=== PATIENT | female | born 1955 | race Caucasian/White ===

== ENCOUNTER 2022-12-10 08:38 | Outpatient (OUT) | payer MEDICARE, SELFPAY ==
[2022-12-10 09:42] LABS: Alanine Aminotransferase 38 U/L (14-59); Albumin Globulin Ratio 1.3; Alkaline Phosphatase 87 U/L (46-116); Anion Gap 10.3; Aspartate Amino Transferase 35 U/L (15-37); BUN Creatinine Ratio 15.1; Bilirubin Total 0.8 mg/dL (0.2-1.0); Calcium 9.3 mg/dL (8.5-10.1); Carbon Dioxide 29.6 mmol/L (21.0-32.0); Chloride 107 mmol/L (98-107); Chol HDL Ratio 2.6; Cholesterol 177 mg/dL (<=200); Estimated GFR (African America >60 (>=60); Estimated GFR (Non-African Ame 60 (>=60); Globulin 3.1 g/dL; Glucose 106 mg/dL (74-106); HDL Cholesterol 67 mg/dL (40-60); Potassium 3.9 mmol/L (3.5-5.1); Sodium 143 mmol/L (136-145); Total Protein 7.1 g/dL (6.4-8.2); Triglycerides 60 mg/dL (<=150)
== END 2022-12-10 08:39 | disposition home or self-care (01) ==
LOC: LAB 08:38
PROVIDERS: PCP Family Medicine; Visit Provider Family Medicine
DX: E78.2 Mixed hyperlipidemia (principal); Z13.1 Encounter for screening for diabetes mellitus
CPT/HCPCS: 36415; 80053; 80061

== ENCOUNTER 2023-11-16 09:20 | Outpatient (OUT) | payer MEDICARE, SELFPAY ==
[2023-11-16 11:32] LABS: Alanine Aminotransferase 30 U/L (14-59); Albumin Globulin Ratio 1.1; Albumin Level 3.6 g/dL (3.4-5.0); Alkaline Phosphatase 72 U/L (46-116); Anion Gap 8.2; Aspartate Amino Transferase 27 U/L (15-37); BUN Creatinine Ratio 25.3; Bilirubin Total 0.8 mg/dL (0.2-1.0); Calcium 8.9 mg/dL (8.5-10.1); Carbon Dioxide 29.8 mmol/L (21.0-32.0); Chloride 107 mmol/L (98-107); Chol HDL Ratio 2.7; Cholesterol 195 mg/dL (<=200); Estimated GFR (African America >60 (>=60); Estimated GFR (Non-African Ame >60 (>=60); Globulin 3.3 g/dL; Glucose 101 mg/dL (74-106); HDL Cholesterol 72 mg/dL (40-60); Sodium 141 mmol/L (136-145); Total Protein 6.9 g/dL (6.4-8.2); Triglycerides 88 mg/dL (<=150); VLDL CHOLESTEROL 17.6 mg/dL
[2023-11-17 16:45] LABS: Free T4 0.95 ng/dL (0.76-1.46)
[2023-11-17 16:52] LABS: Free T3 2.71 pg/mL (2.18-3.98); Thyroid Stimulating Hormone 2.272 uIU/mL (0.358-3.740)
== END 2023-11-16 09:21 | disposition home or self-care (01) ==
LOC: LAB 09:23
PROVIDERS: PCP Family Medicine; Visit Provider Family Medicine
DX: E78.2 Mixed hyperlipidemia (principal); Z13.1 Encounter for screening for diabetes mellitus; R53.82 Chronic fatigue, unspecified
CPT/HCPCS: 36415; 80053; 80061; 84439; 84443; 84481

== ENCOUNTER 2024-05-17 11:28 | Outpatient (OUT) | payer MEDICARE, SELFPAY ==
--- OUTSIDE RECORDS SUMMARY | 2024-05-17 11:33 | XMS_ITS | CCD ---
Author Organization [facility] Care Team Providers Care Customer Service Representative Teacher Name Role Phone DEL CAROLINA Primary Care Physician REQUEST, DR VIVAS LISTED Consulting Unavaila ble REQUEST, DR VIVAS LISTED Admitting Unavaila ble HEMEKAYLAN, DR KAUR Primary Care Unavailable REQUEST, DR VIVAS LISTED Attending Unavaila ble CAITY, DR KAUR Primary Care Unavailable NILL, DR GROVES Attending Unavailable NILL, DR GROVES Consulting Unavailable NILL, DR GROVES Admitting Unavailable LANGENBERG, PAO Consulting Unavailable MCCORNACK, NORA Consulting Unavailable HEMEYER, DR KAUR Consulting Unavailable HEMEYER, DR KAUR Primary Care Unavailable HEMEYER, DR KAUR Admitting Unavailable HEMEYER, DR KAUR Attending Unavailable ZIEBER, DR MELENDEZ R Consulting Unavailable REQUEST, DR VIVAS LISTED Consulting Unavaila ble GENESISYER, DR KAUR Primary Care Unavailable REQUEST, DR VIVAS LISTED Admitting Unavaila ble REQUEST, DR VIVAS LISTED Attending Unavaila ble CAITY, DEL Dawn Attending Unavailable HEMEYER, DEL Dawn Attending Unavailable HEMEYER, DEL Dawn Attending Unavailable Medications Current Medications Medication Drug Class(es) Dates Sig (Normalized) Sig (Original) aspirin 81 mg oral tablet (1 source) Platelet Aggregation Inhibitor, Nonsteroidal Anti-inflammatory Drug Start: 10-28-2021 aspirin 81 mg Oral EC Tab 81 mg = 1 tab(s), Oral, MonWedFri, Refills(s) 0 Start Date: 10/28/21 Status: Ordered Calcium (1 source) Phosphate Binder, Calcium Start: 10-28-2021 take 1 tablet by mouth once daily calcium 500 mg tablet 500 mg = 1 tab(s), Oral, Daily, Refills(s) 0 Start Date: 10/28/21 Status: Ordered Multi Vitamins oral tablet (1 source) Start: 11-04-2021 take 1 tablet by mouth once daily Multi Vitamins oral tablet 1 tab(s), Oral, Daily, Refill(s) 0 Start Date: 11/04/21 Status: Ordered [place]-3 (1 source) Start: 10-28-2021 [place]-3 Refill(s) 0 Start Date: 10/28/21 Status: Ordered rosuvastatin calcium 5 mg oral tablet (1 source) HMG-CoA Reductase Inhibitor Start: 10-28-2021 take 1 tablet by mouth once daily rosuvastatin 5 mg Tab 5 mg = 1 tab(s), Oral, Daily, Refills(s) 0 Start Date: 10/28/21 Status: Ordered Problems Active Problems Problem Classification Problem Date Documented Date Episodic/Chronic Conduction disorders (1 source) 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-28-2021 Chronic Disorders of lipid metabolism (1 source) Mixed hyperlipidemia 10-28-2021 Chronic Menopausal disorders (1 source) Menopausal and female climacteric states; Translations: [MENOPAUSAL FE CLIMACTERIC STATES] Onset: 05-08-2022 Chronic Nutritional deficiencies (5 sources) Vitamin D deficiency; Translations: [Vitamin D deficiency, unspecified] Onset: 05-03-2022 10-28-2021 Chronic Nutritional deficiencies (1 source) Iron deficiency 10-28-2021 Episodic Osteoporosis (3 sources) Osteoporosis; Translations: [Other osteoporosis without current pathological fracture] Onset: 05-08-2022 10-28-2021 Chronic Other and ill-defined heart disease (1 source) Left atrial enlargement 10-28-2021 Chronic Other bone disease and musculoskeletal deformities (1 source) Other specified disorders of bone density and structure, left thigh; Translations: [OTH D/O BONE DEN STRUCT LT THIGH] Onset: 05-08-2022 Episodic Other bone disease and musculoskeletal deformities (1 source) Other specified disorders of bone density and structure, right thigh; Translations: [OTH D/O BONE DEN STRUCT RT THIGH] Onset: 05-08-2022 Episodic Residual codes; unclassified (1 source) Asymptomatic menopausal state; Translations: [ASYMPTOMATIC MENOPAUSAL STATE] Onset: 05-08-2022 Episodic Unclassified (1 source) Body mass index 20-24 - normal 11-04-2021 Unclassified (1 source) Patient encounter status 11-04-2021 Past or Other Problems Problem Classification Problem Date Documented Da te Episodic/Chronic Deficiency and other anemia (1 source) Iron deficiency anemia, unspecified; Translations: [IRON DEFICIENCY ANEMIA UNSPECIFIED] Onset: 12-11-2021 Episodic Other aftercare (1 source) snf (current) use of aspirin; 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] Onset: 12-11-2021 Episodic Other bone disease and musculoskeletal deformities (1 source) Other specified disorders of bone density and structure, unspecified site; Translations: [OTH D/O BONE DEN STRUCT UNS SITE] Onset: 12-11-2021 Episodic Other screening for suspected conditions (not mental disorders or infectious disease) (5 sources) Screening for malignant neoplasm of colon done; Translations: [Encounter for screening for malignant neoplasm of colon] Onset: 11-04-2021 Episodic Results Test Name Value Interpretation Reference Range Facility XR DEXA BONE DENSITYon 05-03 XR DEXA BONE DENSITY EXAMINATION: XR DEX A BONE DENSITY, 05/03/2022 8:55 AM EST HISTORY: Vitamin D deficiency COMPARISON: DEXA bone densitometry 05/09/2017 TECHNIQUE: Dual-energy X-ray absorptiometry (DEXA) bone density study performed for the axial skeleton. FINDINGS: SPINE ANALYSIS: Average bone mineral density is 0.69 g/cm2. T-score (standard deviation relative to young adult mean): -2.6 . +0.8% change since prior study. HIP ANALYSIS: Lowest bone mineral density is within the femoral trochanter, 0.672 g/cm2. T-score (standard deviation relative to young adult mean): -1.6 . +1.2% change since prior study. IMPRESSION: World [employer] Organization Classification: Osteoporosis - High Fracture Risk Electronically authenticated by: NORA CONN Date: 2022-05-03 09:36 Normal [facility] SCREENING MAMMOGRAM W/AYANNA, BILATERAL*on 02-03-2022 SCREENING MAMMOGRAM W/AYANNA, BILATERAL* COMPARISON: December 31, 2020, December 10, 2019 TECHNIQUE: 2D and 3D Tomosynthesis of the right and left breasts was performed. FINDINGS: Breast composition demonstrates heterogeneously dense parenchyma. Overall appearance is stable. No suspicious microcalcifications, asymmetry, architectural distortion, or associated features are present. IMPRESSION: BIRADS 1: Negative COMMENT: Given dense breast tissue, recommend close correlation with self-breast and clinical exam findings. If any new symptoms or signs present clinically, recommend ultrasound to complement mammography. Board Certified Radiologist. Accredited by the ACR and FDA. MAMMOGRAPHY IS VERY IMPORTANT TO YOUR HEALTH. THE CURRENT [employer] [employer] GUIDELINES RECOMMENDS ANNUAL MAMMOGRAPHY BEGINNING AT AGE 40 THIS FACILITY USES A REMINDER SYSTEM TO ENSURE ALL PATIENTS RECEIVE REMINDER NOTIFICATIONS AT THE APPROPRIATE TIME BASED ON THE RECOMMENDATIONS OF THIS EXAM. Report reported and signed by Raheel Peters on 02/03/2022 1010 Normal [facility] Specialist Outside Colonoscopyon 2021 Outside Colonoscopy [id number] #1.00CD:127 Normal [facility] Reminderson 12-10-2021 Reminders - From: Giana Garber LPN To: N - Clinical; Sent: 12/10/2021 10:33:39 EDT Show up: 11/10/2031 07:00:00 EDT Subject: colonoscopy recall Due Date/Time: 12/10/2031 07:00:00 EDT Reminder/Recall Patient is due for screening colonoscopy 12/10/2031. Normal [facility] Consultation Noteon 12-02-19 22 Consultation Note [id number] #1.00CD:127 [facility] Consent for Procedure/Surger yon 11-05-2021 Consent for Procedure/Surgery [id number] #1.00CD:127 [facility] Ambulatory Visit Summaryon 0 11-04-2021 Ambulatory Visit Summary RENO CORNELIUS :1955 Visit Date:11/04/2021 Ambulatory Visit Instructions Your Diagnosis Screening for malignant neoplasm of colon Your Care Team Attending Physician - ANISHA HASSAN, Yaneli Palomares Primary Care Physician - CAITY HASSAN, DEL Dawn This Is Your Medications List Contact prescribing physician if questions or concerns aspirin (aspirin 81 mg Oral EC Tab) calcium carbonate (calcium 500 mg tablet) multivitamin (Multi Vitamins oral tablet) omega-3 polyunsaturated fatty acids ([place]-3) rosuvastatin (rosuvastatin 5 mg Tab) Procedures Performed Colonoscopy (09/22/2011), Cystoscopy, Dilatation and curettage, Vaginal total hysterectomy. Discharge Vitals Heart Rate (Peripheral) 68 Respiratory Rate 16 Blood Pressure 110/60 Height 167.64 cm Height 167.6 cm Weight 58.6 kg Weight 58.6 kg BMI 20.85 Medications What How Much When Instructions Unchanged aspirin (aspirin 81 mg Oral EC Tab) 1 Tablets By Mouth Tuesday Contact prescribing physician if questions or concerns Unchanged calcium carbonate (calcium 500 mg tablet) 1 Tablets By Mouth Every day Contact prescribing physician if questions or concerns Unchanged multivitamin (Multi Vitamins oral tablet) 1 Tablets By Mouth Every day Contact prescribing physician if questions or concerns Unchanged omega-3 polyunsaturated fatty acids ([place]-3) Contact prescribing physician if questions or concerns Unchanged rosuvastatin (rosuvastatin 5 mg Tab) 1 Tablets By Mouth Every day Contact prescribing physician if questions or concerns Allergies No Known Allergies No Known Medication Allergies Problems Ongoing - Any problem that you are currently receiving treatment for. BMI 20.0-20.9, adult Intraventricular conduction delay Iron deficiency Left atrial enlargement Mixed hyperlipidemia Osteoporosis Screening for malignant neoplasm of colon Vitamin D deficiency Normal [facility] Patient Correspondenceon Patient Correspondence [id number]#1.00CD:127 Normal [facility] Physician Referralon 022 Physician Referral [id number] #1.00CD:127 Normal [facility] RAY - LIPID PROFILEon 2021 CHOL-HDL RATIO NORM SEE BELOW Normal [facility] Comment on above: Result Comment: 3.3 - 4.4 LOW RISK 4.4 - 7.1 AVERAGE RISK 7.1 - 11.0 MODERATE RISK >11.0 HIGH RISK Performed By: #### D ATLIPI #### [facility] [address] [address] [address] Fred Norton Cholesterol [Mass/Vol] 181 mg/dL Normal <=200 [facility] Comment on above: Performed By: #### D ATLIPI #### [facility] [address] [place], [place] [address] Dr. Fred Norton Cholesterol in HDL [Mass/Vol] 70 mg/dL Critically high 40-60 [facility] Comment on above: Performed By: #### D ATLIPI #### [facility] [address] [address] [address] Fred Norton Cholesterol in LDL [Mass/Vol] 90.6 mg/dL Normal [facility] Comment on above: Performed By: #### D ATLIPI #### [facility] [address] [address] [address] Fred Norton Cholesterol.total/Cho lesterol in HDL [Mass ratio] 2.6 {ratio} Normal [facility] Comment on above: Performed By: #### D ATLIPI #### [facility] [address] [address] [address] Fred Norton HDL NORMAL > or = 60 mg/dl - LOW CARDIOVASCULAR RISK <40 mg/dl - HIGH CARDIOVASCULAR RISK Normal [facility] Comment on above: Performed By: #### D ATLIPI #### [facility] [address] [address] [address] Fred Norton LDL CALC NORMAL SEE BELOW Normal [facility] Comment on above: Result Comment: <100 mg/dl OPTIMAL 100 - 129 mg/dl NEAR OR ABOVE OPTIMAL 130 - 159 mg/dl BORDERLINE HIGH 160 - 189 mg/dl HIGH >190 mg/dl VERY HIGH Performed By: #### D ATLIPI #### [facility] [address] [address] [address] Fred Norton Triglyceride [Mass/Vol] 102 mg/dL Normal <=150 [facility] Comment on above: Performed By: #### D ATLIPI #### [facility] [address] [address] [address] Fred Norton VLDL CALC 20.4 mg/dL Normal [facility] Comment on above: Performed By: #### D ATLIPI #### [facility] [address] [address] [address] Fred Norton GLYCOHEMOGLOBIN A1Con 2021 ADA RECOMMENDATION ADA THERAPEUTIC TARGET 6.0 - 7.0 ACTION SUGGESTED > 7.0 Normal [facility] Comment on above: Performed By: #### D ATA1C #### [facility] [address] [place] [address] Dr. Fred Norton Glucose [Mass/Vol] 123 mg/dL Normal [facility] Comment on above: Performed By: #### D ATA1C #### [facility] [address] [place] [address] Dr. Fred Norton HbA1c (Bld) [Mass fraction] 5.9 % Normal <=6.0 [facility] Comment on above: Performed By: #### D ATA1C #### [facility] [address] [place] [address] Dr. Fred Norton CBC AUTO DIFFon 06-16-2021 BASO # 0.0 103/ul Normal 0.0-0.1 [facility] Comment on above: Performed By: #### D ATCBC #### [facility] [address] [place] [address] Dr. Fred Norton Basophils/100 WBC (Bld) 0.5 % Normal 0.2-2.0 [facility] Comment on above: Performed By: #### D ATCBC #### [facility] [address] [place] [address] Dr. Fred Norton EO # 0.1 103/ul Normal 0.0-0.7 [facility] Comment on above: Performed By: #### D ATCBC #### [facility] [address] [place] [address] Dr. Fred Norton Eosinophils/100 WBC (Bld) 2.4 % Normal 0.9-7.0 [facility] Comment on above: Performed By: #### D ATCBC #### [facility] [address] [place] [address] Dr. Fred Norton Erythrocyte distribution width (RBC) [Ratio] 12.1 % Normal 11.0-15.0 [facility] Comment on above: Performed By: #### D ATCBC #### [facility] [address] [place] [address] Dr. Fred Norton Hematocrit (Bld) [Volume fraction] 39.6 % Normal 36.0-48.0 [facility] Comment on above: Performed By: #### D ATCBC #### [facility] [address] [address] [address] Fred Norton Hemoglobin (Bld) [Mass/Vol] 13.1 g/dL Normal 12.0-16.0 [facility] Comment on above: Performed By: #### D ATCBC #### [facility] [address] [address] [address] Fred Norton IG # 0.01 10e3/ul Normal 0.00-0.03 [facility] Comment on above: Performed By: #### D ATCBC #### [facility] [address] [address] [address] Fred Norton IG % 0.2 % Normal 0.0-0.5 [facility] Comment on above: Performed By: #### D ATCBC #### [facility] [address] [address] [address] Fred Norton LYMPH # 1.9 103/ul Normal 1.2-3.8 [facility] Comment on above: Performed By: #### D ATCBC #### [facility] [address] [address] [address] Fred Norton Lymphocytes/100 WBC (Bld) 46.1 % Normal 20.5-60.0 [facility] Comment on above: Performed By: #### D ATCBC #### [facility] [address] [address] [address] Fred Norton MCH (RBC) [Entitic mass] 30.3 pg Normal 26.7-34.0 [facility] Comment on above: Performed By: #### D ATCBC #### [facility] [address] [address] [address] Fred Norton MCHC (RBC) [Mass/Vol] 33.1 g/dL Normal 29.9-35.2 [facility] Comment on above: Performed By: #### D ATCBC #### [facility] [address] [address] [address] Fred Norton MCV (RBC) [Entitic vol] 91.5 fL Normal 81.0-99.0 [facility] Comment on above: Performed By: #### D ATCBC #### [facility] [address] [address] [address] Fred Norton MONO # 0.4 103/ul Normal 0.3-0.8 [facility] Comment on above: Performed By: #### D ATCBC #### [facility] [address] [address] [address] Fred Norton Monocytes/100 WBC (Bld) 8.5 % Normal 1.7-12.0 [facility] Comment on above: Performed By: #### D ATCBC #### [facility] [address] [address] [address] Fred Norton NEUT # 1.8 103/ul Normal 1.4-6.5 [facility] Comment on above: Performed By: #### D ATCBC #### [facility] [address] [place] [address] Dr. Fred Norton Neutrophils/100 WBC (Bld) 42.3 % Critically low 43.0-75.0 [facility] Comment on above: Performed By: #### D ATCBC #### [facility] [address] [place] [address] Dr. Fred Norton Platelet mean volume (Bld) [Entitic vol] 9.4 fL Critically low 9.5-13.5 [facility] Comment on above: Performed By: #### D ATCBC #### [facility] [address] [place] [address] Dr. Fred Norton PLT 147 103/ul Critically low 150-450 [facility] Comment on above: Performed By: #### D ATCBC #### [facility] [address] [place] [address] Dr. Fred Norton RBC 4.33 106/ul Normal 4.20-5.40 [facility] Comment on above: Performed By: #### D ATCBC #### [facility] [address] [place] [address] Dr. Fred Norton WBC 4.1 103/ul Normal 4.0-11.0 [facility] Comment on above: Performed By: #### D ATCBC #### [facility] [address] [address] [address] Fred Norton RAY- BMP WITH LIPIDon 2021 Anion gap [Moles/Vol] 12.9 mmol/L Normal [facility] Comment on above: Performed By: #### D ATBMP #### [facility] [address] [address] [address] Fred Norton Calcium [Mass/Vol] 9.0 mg/dL Normal 8.4-10.2 [facility] Comment on above: Performed By: #### D ATBMP #### [facility] [address] [address] [address] Fred Norton Chloride [Moles/Vol] 103 mmol/L Normal 98-107 [facility] Comment on above: Performed By: #### D ATBMP #### [facility] [address] [place] [address] Dr. Fred Norton Cholesterol [Mass/Vol] 291 mg/dL Critically high <=200 [facility] Comment on above: Performed By: #### D ATBMP #### [facility] [address] [address] [address] Fred Norton Cholesterol in HDL [Mass/Vol] 54 mg/dL Normal [facility] Comment on above: Performed By: #### D ATBMP #### [facility] [address] [place] [address] Dr. Fred Norton Cholesterol in LDL [Mass/Vol] 196.4 mg/dL Normal [facility] Comment on above: Performed By: #### D ATBMP #### [facility] [address] [place] [address] Dr. Fred Norton CO2 [Moles/Vol] 30.3 mmol/L Critically high 22.0-30.0 [facility] Comment on above: Performed By: #### D ATBMP #### [facility] [address] [address] [address] Fred Norton Creatinine [Mass/Vol] 0.76 mg/dL Normal 0.52-1.04 [facility] Comment on above: Performed By: #### D ATBMP #### [facility] [address] [address] [address] Fred Norton EGFR-AF SOUTH [place]ICAN >60 Normal >=60 [facility] Comment on above: Performed By: #### D ATBMP #### [facility] [address] [address] [address] Fred Norton EGFR-NON AF [place] >60 Normal >=60 [facility] Comment on above: Performed By: #### D ATBMP #### [facility] [address] [address] [address] Fred Norton Glucose [Mass/Vol] 95 mg/dL Normal 74-106 [facility] Comment on above: Performed By: #### D ATBMP #### [facility] [address] [address] [address] Fred Norton HDL NORMAL > or = 60 mg/dl - LOW CARDIOVASCULAR RISK <40 mg/dl - HIGH CARDIOVASCULAR RISK Normal [facility] Comment on above: Performed By: #### D ATBMP #### [facility] [address] [address] [address] Fred Norton LDL CALC NORMAL SEE BELOW Normal [facility] Comment on above: Result Comment: <100 mg/dl OPTIMAL 100 - 129 mg/dl NEAR OR ABOVE OPTIMAL 130 - 159 mg/dl BORDERLINE HIGH 160 - 189 mg/dl HIGH >190 mg/dl VERY HIGH Performed By: #### D ATBMP #### [facility] [address] [address] [address] Fred Norton Potassium [Moles/Vol] 4.2 mmol/L Normal 3.4-5.0 [facility] Comment on above: Performed By: #### D ATBMP #### [facility] [address] [address] [address] Fred Norton Sodium [Moles/Vol] 142 mmol/L Normal 137-145 [facility] Comment on above: Performed By: #### D ATBMP #### [facility] [address] [address] [address] Fred Norton Triglyceride [Mass/Vol] 203 mg/dL Critically high <=150 [facility] Comment on above: Performed By: #### D ATBMP #### [facility] [address] [address] [address] Fred Norton Urea nitrogen [Mass/Vol] 15.0 mg/dL Normal 7.0-17.0 [facility] Comment on above: Performed By: #### D ATBMP #### [facility] [address] [address] [address] Fred Norton Urea nitrogen/Creatinine [Mass ratio] 19.7 mg/mg Normal [facility] Comment on above: Performed By: #### D ATBMP #### [facility] [address] [address] [address] Fred Norton VLDL CALC 40.6 mg/dL Normal [facility] Comment on above: Performed By: #### D ATBMP #### [facility] [address] [address] [address] Fred Norton Vital Signs Date Time Vital Sign Value Performing Clinician Stevie khan 11-04-2021 13:50-0400 Blood Pressure Location [facility] [place] 11-04-2021 13:50-0400 Diastolic blood pressure 60 mm[Hg] Yaneli NILL [facility] [place] 11-04-2021 13:50-0400 Heart rate 68 /min Yaneli NILL [facility] [place] 11-04-2021 13:50-0400 Respiratory rate 16 /min Yaneli NILL [facility] [place] 11-04-2021 13:50-0400 Systolic blood pressure 110 mm[Hg] Yaneli NILL [facility] [place] Encounters Encounter Date Encounter Type Care Provider Facility Start: 11-28-2023 End: 11-28-2023 ambulatory DEL CAROLINA Not Available Start: 10-03-2023 End: 10-03-2023 ambulatory DEL CAROLINA Not Available Start: 05-02-2023 End: 05-02-2023 ambulatory DEL CAROLINA Not Available Start: 05-03-2022 End: 05-04-[address] DEL CAROLINA Facility:[facility] Start: 12-09-2021 End: 12-09-[address] DEL CAROLINA Facility:[facility] Start: 11-04-2021 End: 11-04-2021 Patient encounter procedure Yaneli HEADLEY [facility] Start: 09-10-2021 End: 09-11-2021 ambulatory NONE LISTED REQUEST Facility: Start: 06-16-2021 End: 06-17-2021 ambulatory NONE LISTED REQUEST Facility: Procedures Date Procedure Procedure Detail Performing Clinician Start: 09-22-2011 Colonoscopy Yaneli ELLINGTON Cystoscopy Yaneli HEADLEY Dilation and curetta ge of uterus Yaneli HEADLEY Total hysterectomy v ia vaginal approach Yaneli HEADLEY Payers Date Payer Category Payer Medicare [id number] 1961 Private Health Insurance CLI [id number] 1961 Self-pay 1955 Unknown [id number] 2.16.84 [id number] 1955 Unknown [id number] 2.16.84 [id number] 1955 Unknown [id number] 2.16.84 [id number] 1955 Unknown [id number] 2.16.84 [id number] 1955 Unknown [id number] [id number] Unknown [id number] 2.16.84 [id number] Unknown [id number] 2.16.84 [id number] Social History Date Type Detail Facility Start: 11-04-2021 Never smoked tobacco (f inding) [facility] [place] [facility] [place] Female [facility] [place] Clinical Note 12-09-2021 Note Date & Type Note Facility 12-09-2021 Note OPERATIVE NOTE OPERATION DATE: 12/09/2021 PREOPERATIVE DIAGNOSIS: Colorectal screening. POSTOPERATIVE DIAGNOSIS: Normal colon to cecum. SURGEON: Yaneli Headley M.D. ANESTHESIA: Monitored anesthesia care. ESTIMATED BLOOD LOSS: Zero. INDICATIONS AND CONSENT: Patient is a 66-year-old female, presents for colorectal screening. Indications, risks, benefits, alternatives of proceeding with colonoscopy were explained extensively to the patient, including the risks of bleeding, colon perforation or anesthetic complications. All of her questions were answered. Informed consent was obtained. PROCEDURE: Patient brought to the operating room, placed in the left lateral decubitus position. Monitored anesthesia care was provided. Rectal exam was performed which showed no masses or blood. The scope was inserted into the anal canal. Under direct visualization was advanced. With the aid of abdominal compression, it was advanced to the cecum where cecal markings were clearly identified. There was noted to be a good prep. Upon withdrawal of the scope, mucosal surfaces were carefully examined. There were no mass lesions or polyps. No inflammatory changes or ulcerations. No significant diverticulosis. The scope was retroflexed in the anal canal. There was no significant hemorrhoidal disease. Scope was then withdrawn. Patient tolerated procedure well, was sent to recovery room in good condition. Follow up colonoscopy for screening should be in 10 years. CC: Del Carolina M.D. : [facility] Signed and Approved by: DR YANELI HEADLEY . 12/14/2021 17:17:00 [facility] Clinical Note 11-04-2021 Note Date & Type Note Facility 11-04-2021 Note Chief Complaint consultation for screening colonoscopy HPI Staff 66 year old female presents on consultation from Dr. Carolina for colonoscopy. Denies abdominal or rectal pain. No rectal bleeding or change in bowel habits. Denies nausea or vomiting. Denies unexplained weight loss. Last colonoscopy completed 09/2011- normal. No known family history of colon cancer. History of Present Illness 66 yo female with h/o hyperlipidemia, referred for colorectal screening; denies change in bms or blood in stools; no abdominal complaints; on baby asa daily, no NSAID use, no SBE prophylaxis; last colonoscopy 2011, reportedly wnl; abdominal operations significant for JESS; no fmhx of GI malignancy or IBD; no tobacco use. Review of Systems PHQ Score Initial Depression Screen Score: 0 ROS - Provider Constitutional: no fever, no sweats, no weight loss. Eyes: no glasses, no blurred vision, no visual loss. ENMT: no dentures, no hoarseness, no swallowing difficulties, no hearing loss, no ear infection(s), no nose bleeds. Cardiovascular: normal blood pressure, no chest pain, regular heartbeat, no heart murmur. Respiratory: no shortness of breath, no cough, no asthma, no wheezing. Gastrointestinal: no nausea, no vomiting, no diarrhea, no constipation, no blood in stool, no change in bowel habits, no abdominal pain, no hepatitis. Genitourinary: no kidney stones, no urine infection, no dysuria. Musculoskeletal: no pain, no weakness. Skin: no changing moles, no rash, no skin lumps. Neurologic: no seizures, no epilepsy, no headache. Psychiatric: no emotional or psychiatric problem. Heme/Lymph: no bleeding problems, no anemia, no blood clots, no transfusions. Allergy/Immunologic: no swollen lymph nodes/glands, no IV drug abuse. Other: Additional ROS info: Except as noted in the above Review of Systems and in the History of Present Illness, all other systems have been reviewed and are negative or noncontributory. Physical Exam Vitals & Measurements HR: 68(Peripheral) RR: 16 BP: 110/60 HT: 167.64 cm HT: 167.6 cm WT: 58.6 kg WT: 58.6 kg BMI: 20.85 HEENT: normal conjunctiva, sclera clear, no scleral icterus, EOM intact, PERRLA, oral mucosa moist without lesions. Neck: trachea midline, no mass, symmetric, no thyromegaly or nodules, no adenopathy Respiratory: lungs CTA, respirations non labored. Cardiovascular: regular rate and rhythm, no murmur, no pedal edema or varicosities. Gastrointestinal: soft, non distended, no tenderness, no masses, no palpable hernias, diastasis recti no, no hepatosplenomegaly; normal bs Lymphatic: no cervical adenopathy, Musculoskeletal: normal gait, digits and nails without infection, nodes, cyanosis, clubbing. Skin: no rashes, no lesions, no ulcers, no subcutaneous nodules, induration. Psychiatric/Neuro: oriented to time, place, person, judgement normal, affect appropriate for age, insight intact, no focal deficits. Tests: review of old records completed, Discussed surgical options, risks, and possible complications with patient. Assessment/Plan 1. Screening for malignant neoplasm of colon (Z12.11: Encounter for screening for malignant neoplasm of colon) plan colonoscopy under anesthesia, informed consent obtained. Follow-up No qualifying data available Problem List/Past Medical History Ongoing BMI 20.0-20.9, adult Intraventricular conduction delay Iron deficiency Left atrial enlargement Mixed hyperlipidemia Osteoporosis Screening for malignant neoplasm of colon Vitamin D deficiency Historical No qualifying data Procedure/Surgical History Colonoscopy (09/22/2011), Cystoscopy, Dilatation and curettage, Vaginal total hysterectomy. Medications aspirin 81 mg Oral EC Tab, 81 mg= 1 tab(s), Oral, MonWedFri calcium 500 mg tablet, 500 mg= 1 tab(s), Oral, Daily Multi Vitamins oral tablet, 1 tab(s), Oral, Daily [place]-3 rosuvastatin 5 mg Tab, 5 mg= 1 tab(s), Oral, Daily Allergies No Known Allergies No Known Medication Allergies Social History Alcohol - Denies Alcohol Use, 11/04/2021 Substance Abuse - Denies Substance Abuse, 11/04/2021 Tobacco Never (less than 100 in lifetime) Tobacco Use:. Never Smokeless Tobacco Use:., 11/04/2021 Family History Acute myocardial infarction: Father. Cardiac arrest: Brother. Heart disease: Mother. Hypertension: Father. NF - Neurofibromatosis: Brother. Parkinson disease: Father. [facility] Comment on above: Result Comment: Elec tronically Signed By: ANISHA HASSAN, Yaneli Leiva\Date and Time Signed: 11/04/21 14:18 EDT Evaluation + Plan note Note Date & Type Note Facility Evaluation + Plan note No data available for this section General [facility] Discharge instructions Note Date & Type Note Facility Hospital Discharge instructions No data available for this section [facility] Summary Purpose Family History No Family History Records FoundNo Family History Records FoundNo Family History Records FoundNo Family History Records Found Advance Directives No Advanced Directives Records FoundNo Advanced Directives Records FoundNo Advanced Directives Records FoundNo Advanced Directives Records Found Additional Source Comments INFORMATION SOURCE (unrecogn ized section and content) DATE CREATED AUTHOR 12/16/2021 [facility] DATE CREATED AUTHOR AUTHOR'S ORGANIZ ATION 02/03/2022 [facility] dical Specialist DATE CREATED AUTHOR AUTHOR'S ORGANIZ ATION 05/08/2022 [facility] DATE CREATED AUTHOR AUTHOR'S ORGANIZ ATION 11/28/2023 [facility] dical Specialists EPIC FOR RECORDS PERTAINING TO PATIENTS WHO ARE OR HAVE BEEN ENROLLED IN A CHEMICAL DEPENDENCY/SUBSTANCEABUSE PROGRAM, SOME INFORMATION MAY BE OMITTED. This clinical summary was aggregated from multiple sources. Caution should be exercised in using it in the provision of clinical care. This summary normalizes information from multiple sources, and as a consequence, information in this document may materially change the coding, format and clinical context of patient data. In addition, data may be omitted in some cases. CLINICAL DECISIONS SHOULD BE BASED ON THE PRIMARY CLINICAL RECORDS. [facility] [employer] [facility]. provides no warranty or guarantee of the accuracy or completeness of information in this document.
--- NOTE | 2024-05-17 11:55 | MM_ITS ---
Patient Name: RENO CORNELIUS MR#: [id number] : 1955 Exam Date: 05/17/2024 Ordering Doctor: DR VINCENT CAROLINA . RADIOLOGY REPORT PROCEDURE: MM TOMOSYNTHESIS SCREENING BI COMPARISON: MM TOMOSYNTHESIS SCREENING BI, 03/08/2023. MM TOMOSYNTHESIS SCREENING BI, 02/03/2022. MM TOMOSYNTHESIS SCREENING BI, 12/31/2020. MG MAMM SCREEN KATHLEEN W CAD, 12/10/2019. INDICATIONS: Screening Calculator Name NCI Breast Cancer Risk Assessment Tool 5 Year Breast Cancer Risk 1.70% Lifetime Breast Cancer Risk 5.10% Personal Breast Cancer No Personal Ovarian Cancer No Treatments None Family Cancers Brother with prostate cancer at age 60; Brother with prostate cancer at age 65; Brother with prostate cancer at age 70; Brother with bladder cancer at age 74; Father with prostate cancer at age 60. LOCATION: [facility] BREAST COMPOSITION: The breasts are extremely dense, which lowers the sensitivity of mammography. FINDINGS: DIAGNOSTIC CATEGORY 1--NEGATIVE. RIGHT BREAST: No significant suspicious finding. No significant change has occurred. LEFT BREAST: No significant suspicious finding. No significant change has occurred. RECOMMENDATIONS: ROUTINE MAMMOGRAM AND CLINICAL EVALUATION IN 12 MONTHS. PLEASE NOTE: A NORMAL MAMMOGRAM DOES NOT EXCLUDE THE POSSIBILITY OF BREAST CANCER. A CLINICALLY SUSPICIOUS PALPABLE LUMP SHOULD BE BIOPSIED. Dictated by: Royce Wilson M.D. on 06/04/2024 at 15:26 Approved by: Royce Wilson M.D. on 06/04/2024 at 15:28
== END 2024-05-17 11:29 | disposition home or self-care (01) ==
LOC: MAMMO 11:28
PROVIDERS: PCP Family Medicine; Visit Provider Family Medicine
DX: Z12.31 Encounter for screening mammogram for malignant neoplasm of breast (principal); Z80.42 Family history of malignant neoplasm of prostate; Z80.52 Family history of malignant neoplasm of bladder
CPT/HCPCS: 77063; 77067

== ENCOUNTER 2024-12-04 09:06 | Outpatient (OUT) | payer MEDICARE, SELFPAY ==
--- OUTSIDE RECORDS SUMMARY | 2024-12-04 09:11 | XMS_ITS | Encounter Summary ---
Author Organization [facility] Address [address] [place] [address] Care Team Providers Care Carrot Grader Inspector Name Role Phone Del Carolina MD Unavailable [phone] Del Carolina MD Primary Care Provider [phone] Encounter Details Date Type Department Care Team (Late st Contact Info) Description 06/04/2024 Clinisync Result Encounter [facility] External Department Unsolicited Del Carolina MD [address] [place] [address] Social History Tobacco Use Types Packs/Day Years Used Date Smoking Tobacco: Never Smokeless Tobacco: Never Alcohol Use Standard Drinks/Week Comments Not Currently 1 (1 standard drink = 0.6 oz pur e alcohol) Humiliation, Afraid, Rape, and Kick questionnair e Answer Date Recorded Within the last year, have y ou been afraid of your partner or ex-partner? No 04/25/2023 Within the last year, have y ou been humiliated or emotionally abused in other ways by your partner or ex-partner? No Within the last year, have y ou been kicked, hit, slapped, or otherwise physically hurt by your partner or ex-partner? No 04/25/2023 Within the last year, have y ou been raped or forced to have any kind of sexual activity by your partner or ex-partner? No 04/25/2023 Social Connection and Isolat ion Panel [NHANES] Answer Date Recorded In a typical week, how many times do you talk on the phone with family, friends, or neighbors? More than three times a week 04/25/2023 How often do you get togethe r with friends or relatives? Twice a week 04/25/2023 How often do you attend chur or faith services? More than 4 times per year 04/25/2023 Do you belong to any clubs o r organizations such as oriental orthodox groups, unions, fraternal or athletic groups, or school groups? Yes 04/25/2023 How often do you attend meet ings of the clubs or organizations you belong to? More than 4 times per year 04/25/2023 Are you , , di vorced, , never , or living with a partner? 04/25/2023 AUDIT-C Answer Date Recorded Q1: How often do you have a drink containing alcohol? Monthly or less 04/25/2023 Q2: How many drinks containi ng alcohol do you have on a typical day when you are drinking? Patient does not drink Q3: How often do you have si x or more drinks on one occasion? Never 04/25/2023 Overall Financial Resource Strain (CARDIA) Answe r Date Recorded How hard is it for you to pa y for the very basics like food, housing, medical care, and heating? Not hard at all 04/25/2023 PHQ-2 Answer Date Recorded Patient Health Questionnaire-2 Score 0 06/07/2024 [facility] Occupational Stress Questionnaire Answer Date Recorded Do you feel stress - tense, restless, nervous, or anxious, or unable to sleep at night because your mind is troubled all the time - these days? Only a little 04/25/2023 Exercise Vital Sign Answer Date Recorde d On average, how many days pe r week do you engage in moderate to strenuous exercise (like a brisk walk)? Patient declined On average, how many minutes do you engage in exercise at this level? Patient declined 04/25/2023 Hunger Vital Sign Answer Date Recorded Within the past 12 months, y ou worried that your food would run out before you got the money to buy more. Never true 04/25/20 23 Within the past 12 months, t he food you bought just didn't last and you didn't have money to get more. Never true 04/25/2023 PRAPARE - Transportation Answer Date Re corded In the past 12 months, has l ack of transportation kept you from medical appointments or from getting medications? No 04/07 In the past 12 months, has l ack of transportation kept you from meetings, work, or from getting things needed for daily living? No 04/25/2023 Housing Stability Vital Sign Answer Rich e Recorded In the last 12 months, was t here a time when you were not able to pay the mortgage or rent on time? No 04/25/2023 In the last 12 months, how many places have you lived? 1 04/25/2023 In the last 12 months, was t here a time when you did not have a steady place to sleep or slept in a retirement (including now)? No 04/25/2023 Comments No Sex and Gender Information Value Date Recorded Sex Assigned at Not on file Legal Sex Female 6:37 PM EDT Gender Identity Not on file Sexual Orientation Not on file documented as of this encounter Functional Status * Over the past 2 weeks, how often have you been bothered by any of the following problems? Question Answer Date of Assessment Author Patient Health Questionnaire-2 Score 0 07/2024 1:06 PM EST Mychart, Generic * Little interest or pleasure in doing things Answer Date of Assessment Author Not at all 06/07/2024 1:06 PM EST Mychart, Generic * Feeling down, depressed, or hopeless Answer Date of Assessment Author Not at all 06/07/2024 1:06 PM EST Mychart, Generic documented as of this encounter Plan of Treatment Upcoming Encounters Date Type Department Care Team (Late st Contact Info) Description 12/12/2024 3:00 PM EDT Office Visit [facility] [address] [place] [address] Del Carolina MD [address] [place] [address] documented as of this encounter Procedures Procedure Name Priority Date/Time Associated Diagnosis Comments MM TOMOSYNTHESIS SCREENING BI 06/04/2024 3:28 PM EST documented in this encounter Results * MM TOMOSYNTHESIS SCREENING BI (06/04/2024 3:28 PM EST) Anatomical Region Laterality Modality Other 06/04/2024 3:28 PM EST Narrative 06/04/2024 3:29 PM EST The [address] [address] Mammography Report Signed Patient: RNEO MASON MR#: [id number] : 1955 Acct:[id number] Age/Sex: 68 / F ADM Date: 05/17/24 Loc: MAMMO Attending Dr: DEL CAROLINA Ordering Physician: DEL CAROLINA Results: Date of Service: 05/17/24 Follow Up: Procedure(s): MM tomosynthesis screening BI Accession Number(s): [id number] cc: DEL CAROLINA Patient Name: RENO MASON MR#: [id number] : 1955 Exam Date: 05/17/2024 Ordering Doctor: DR DEL CAROLINA . RADIOLOGY REPORT PROCEDURE: MM TOMOSYNTHESIS SCREENING BI COMPARISON: MM TOMOSYNTHESIS SCREENING BI, 03/08/2023. MM TOMOSYNTHESIS SCREENING BI, 02/03/2022. MM TOMOSYNTHESIS SCREENING BI, 12/31/2020. MG MAMM SCREEN KATHLEEN W CAD, 12/10/2019. INDICATIONS: Screening Calculator Name NCI Breast Cancer Risk Assessment Tool 5 Year Breast Cancer Risk 1.70% Lifetime Breast Cancer Risk 5.10% Personal Breast Cancer No Personal Ovarian Cancer No Treatments None Family Cancers Brother with prostate cancer at age 60; Brother with prostate cancer at age 65; Brother with prostate cancer at age 70; Brother with bladder cancer at age 74; Father with prostate cancer at age 60. LOCATION: [facility] BREAST COMPOSITION: The breasts are extremely dense, which lowers the sensitivity of mammography. FINDINGS: DIAGNOSTIC CATEGORY 1--NEGATIVE. RIGHT BREAST: No significant suspicious finding. No significant change has occurred. LEFT BREAST: No significant suspicious finding. No significant change has occurred. RECOMMENDATIONS: ROUTINE MAMMOGRAM AND CLINICAL EVALUATION IN 12 MONTHS. PLEASE NOTE: A NORMAL MAMMOGRAM DOES NOT EXCLUDE THE POSSIBILITY OF BREAST CANCER. A CLINICALLY SUSPICIOUS PALPABLE LUMP SHOULD BE BIOPSIED. Dictated by: Royce Wilson M.D. on 06/04/2024 at 15:26 Approved by: Royce Wilson M.D. on 06/04/2024 at 15:28 Dictated By: Royce Wilson M.D. Signed By: 06/04/24 1529 DD/ 1528 TD/TT: Banquet Line Cook: Procedure Note Radiology, Radiologist, MD - 06/04/2024 [place] [address] Mammography Report Signed Patient: RENO MASON MMR#: [id number] : 1955cct:[id number] Age/Sex: 68 / FADM Date: 05/17/24 Loc: MAMMO Attending Dr: DEL CAROLINA Ordering Physician: DEL CAROLINAResults: Date of Service: 05/17/24Follow Up: Procedure(s): MM tomosynthesis screening BI Accession Number(s): [id number] cc: DEL CAROLINA Patient Name: RENO MASON MR#: [id number] : 1955 Exam Date: 05/17/2024 Ordering Doctor: DR DEL CAROLINA . RADIOLOGY REPORT PROCEDURE: MM TOMOSYNTHESIS SCREENING BI COMPARISON: MM TOMOSYNTHESIS SCREENING BI, 03/08/2023. MMTOMOSYNTHESIS SCREENING BI, 02/03/2022. MM TOMOSYNTHESIS SCREENING BI, 12/31/2020. MGMAMM SCREEN KATHLEEN W CAD, 12/10/2019. INDICATIONS: Screening Calculator Name NCI Breast Cancer Risk Assessment Tool 5 Year Breast Cancer Risk 1.70% Lifetime Breast Cancer Risk 5.10% Personal Breast Cancer No Personal Ovarian Cancer No Treatments None Family Cancers Brother with prostate cancer at age 60; Brother with prostate cancer at age 65; Brother with prostate cancer at age 70; Brother with bladder cancer at age 74; Father with prostate cancer at age 60. LOCATION: [facility] BREAST COMPOSITION: The breasts are extremely dense, which lowers the sensitivity of mammography. FINDINGS: DIAGNOSTIC CATEGORY 1--NEGATIVE. RIGHT BREAST: No significant suspicious finding. No significant changehas occurred. LEFT BREAST: No significant suspicious finding. No significant changehas occurred. RECOMMENDATIONS: ROUTINE MAMMOGRAM AND CLINICAL EVALUATION IN 12 MONTHS. PLEASE NOTE: A NORMAL MAMMOGRAM DOES NOT EXCLUDE THE POSSIBILITY OFBREAST CANCER. A CLINICALLY SUSPICIOUS PALPABLE LUMP SHOULD BE BIOPSIED. Dictated by: Royce Wilson M.D. on 06/04/2024 at 15:26 Approved by: Royce Wilson M.D. on 06/04/2024 at 15:28 Dictated By: Royce Wilson M.D. Signed By:06/04/24 1529 DD/ 1528 TD/TT: Banquet Line Cook: Del Carolina MD [facility] Final Resu lt documented in this encounter Visit Diagnoses Not on filedocumented in this encounter Additional Health Concerns Assessment Noted Time PHQ-9 Depression Total Score: 1 05/02/20 23 9:00 AM EST documented as of this encounter Care Teams Carrot Grader Inspector Relationship Specialty Start Date End Date Del Carolina MD [address] [address] PCP - ACO Reach 10/28/22 Del Carolina MD [address] [address] PCP - General Family Medicine 10/12/22 documented as of this encounter
--- OUTSIDE RECORDS SUMMARY | 2024-12-04 09:11 | XMS_ITS | Patient Health Record ---
Author Organization [facility] Address [address] [place] [address] Care Team Providers Care Railway Head Tender Name Role Phone Del Caraballo MD Primary Care Provider Unavail able Allergies No Known Allergies Reason For Referral No Information Medications Medication SIG (Take, Route, Frequency, Duration) Notes Start Date End Date Status Rosuvastatin Calcium 5 MG 1 tablet Orally Once a day Active Social History Tobacco Use: Social History Observation Description Date Details (start date - stop date) Never Smoker NA - NA Tobacco Control (Standard) Question Answer Notes Tobacco use: Nonsmoker Plan Of Treatment No Information Insurance Providers Payer Name Payer Address Payer Phone Subscriber Number Group Number Insured Name Patient Relationship to Insured Coverage Start Date Coverage End Date MEDICARE [place] [address] [place] [phone] [id number] Gisela Mason Self - patient is the insured [facility] [employer] [address] [address] [place] [address] [id number] Gisela Mason Self - patient is the insured Medical (General) History Medical History History ICD Code high cholesterol Surgical History Surgery Date(Month/Year) hysterectomy
--- OUTSIDE RECORDS SUMMARY | 2024-12-04 09:11 | XMS_ITS | Encounter Summary ---
Author Organization [facility] Address [address] [place] [address] Care Team Providers Care Tourist Escort Name Role Phone Del Caraballo MD Unavailable [phone] Del Caraballo MD Primary Care Provider [phone] Reason for Visit * Reason Comments Med Refill Encounter Details Date Type Department Care Team (Late st Contact Info) Description 09/01/2023 Refill [facility] [address] [place] [address] Del Caraballo MD [address] [facility] [address] [place] [address] (Fax) Mixed hyperlipidemia ; Screening for diabetes mellitus (DM) Social History Tobacco Use Types Packs/Day Years Used Date Smoking Tobacco: Never Smokeless Tobacco: Never Alcohol Use Standard Drinks/Week Comments Yes 1 (1 standard drink = 0.6 oz [...] 04/25/2023 How often do you attend chur ch or mosque services? More than 4 times per year 04/25/2023 Do you belong to any clubs o r organizations such as shinto groups, unions, fraternal or athletic groups, or [...] Date Recorded Patient Health Questionnaire-2 Score 0 [facility]/02/2023 [facility] Answer Date Recorded [...] place to sleep or slept in a senior living (including now)? No 04/25/2023 Comments No Sex and Gender Information Value Date Recorded Sex Assigned at Not on file Legal Sex Female 6:37 PM EDT Gender Identity Not on file Sexual Orientation Not on file documented as of this encounter Miscellaneous Notes * Telephone Encounter - Indigo Florentino - 09/19/2023 10:40 AM EDT Gave note to Dr. Mason to take home, reminding Gisela to make an appointment. * Telephone Encounter - Lizy Curry MA - 09/05/2023 2:59 PM EDT Pt called and stated she needed a refill of her crestor and probably labs. I looked and she would not be due until end of November so I sent a 90 day and sent labs for that OV. I called and left her a VMand let her know and asked her to call back and schedule her OV with Gina. documented in this encounter Plan of Treatment Upcoming Encounters Date Type Department Care Team (Late st Contact Info) Description 12/12/2024 3:00 PM EDT Office Visit [facility] [address] [place] [address] Del Caraballo MD [address] [place] [address] documented as of this encounter Visit Diagnoses Diagnosis Mixed hyperlipidemia Mixed hyperlipidemia Screening for diabetes mellitus (DM) Screening for diabetes mellitus documented in this encounter Additional Health Concerns Assessment Noted Time PHQ-9 Depression Total Score: 1 05/02/20 23 9:00 AM EST documented as of this encounter Care Teams Tourist Escort Relationship Specialty Start Date End Date Del Caraballo MD [address] [facility] [address] [place] [address] PCP - ACO Reach 10/28/22 Del Caraballo MD [address] [facility] [address] [place] [address] PCP - General Family Medicine 10/12/22 documented as of this encounter
--- OUTSIDE RECORDS SUMMARY | 2024-12-04 09:11 | XMS_ITS | Encounter Summary ---
Author Organization [facility] Address [address] [place] [address] Care Team Providers Care Picture Framer Name Role Phone Del Caraballo MD Unavailable [phone] Del Caraballo MD Primary Care Provider + [phone] Reason for Visit * Reason Onset Date Comments Care Coordination 12/03/2024 Encounter Details Date Type Department Care Team (Late st Contact Info) Description 12/03/2024 Telephone [facility] [address] [place] [address] Lizy Curry, [place] Care Coordination Social History Tobacco Use Types Packs/Day Years [...] How often do you attend chur or mandaen services? More than 4 times per year 04/25/2023 Do you belong to any clubs o r organizations such as synagogue groups, unions, fraternal or athletic groups, or [...] Recorded Patient Health Questionnaire-2 Score 0 06/07/2024 [facility] - Occupational Stress Questionnaire Answer Date [...] place to sleep or slept in a [facility] (including now)? No 04/25/2023 Comments No Sex and Gender Information Value Date Recorded Sex Assigned at Not on file Legal Sex Female 6:37 PM EDT Gender Identity Not on file Sexual Orientation Not on file documented as of this encounter Miscellaneous Notes * Telephone Encounter - Lizy Curry MA - 12/03/2024 8:47 AM EDT I sent in 30 days to get her through her vacation and I ordered her CMP Lipid for an OV after they get back. * Telephone Encounter - Lizy Curry MA - 12/03/2024 8:45 AM EDT Copied from : Lizy Jimenes, marilia anderson. CV S says I do not have a renewal or on my who is of the stat? We are going on vacation next week. And I have about 8 pills left, so I wonder if you got their message that I need a refill and do I need to get a blood test before next week? We are leaving Tuesday the or the second, the second, okay, . Thank you, Gisela. philipp Mason documented in this encounter Plan of Treatment Upcoming Encounters Date Type Department Care Team (Late st Contact Info) Description 12/12/2024 3:00 PM EDT Office Visit [facility] [address] [facility] [address] [place] [address] Del Caraballo MD [address] [facility] [place] [address] Scheduled Orders Name Type Priority Associated Diagnoses Orde r Schedule Comprehensive metabolic panel Lab Routine Screening for diabetes mellitus (DM) Expected: 12/03/2024 (Approximate), Expires: 12/03/2025 Lipid panel Lab Routine Mixed hyperlipidemia Expected: 12/03/2024 (Approximate), Expires: 12/03/2025 documented as of this encounter Visit Diagnoses Diagnosis Mixed hyperlipidemia Mixed hyperlipidemia Chronic fatigue Other malaise and fatigue Screening for diabetes mellitus (DM) Screening for diabetes mellitus documented in this encounter Additional Health Concerns Assessment Noted Time PHQ-9 Depression Total Score: 1 05/02/20 23 9:00 AM EST documented as of this encounter Care Teams Picture Framer Relationship Specialty Start Date End Date Del Caraballo MD [address] [facility] [address] PCP - ACO Reach 10/28/22 Del Caraballo MD [address] [facility] [address] PCP - General Family Medicine 10/12/22 documented as of this encounter
--- OUTSIDE RECORDS SUMMARY | 2024-12-04 09:11 | XMS_ITS | Clinical Summary ---
Author Organization [facility] Address [address] [place] [address] Care Team Providers Care Inspector Multifocal Lens Name Role Phone Del Carolina MD Unavailable [phone] Del Carolina MD Primary Care Provider + [phone] Allergies No known active allergies Medications multivitamin (Theragran) tablet Take 1 tablet by mouth in the morning. Active cholecalciferol (Vitamin D-3) 50 MCG (2000 UT) capsule Take 2,000 Units by mouth in the morning. Active calcium citrate (Calcitrate) 950 (200 Ca) MG tablet Take 950 mg by mouth in the morning. Active ciclopirox (Penlac) 8 % solutionIndication s:Pain due to onychomycosis of toenails of both feet Apply topically at bedtime 6 mL 3 06/28/19 25 Active rosuvastatin (Crestor) 5 MG tabletIndications: Mixed hyperlipidemia Take 1 tablet (5 mg) by mouth Daily 30 tablet 12/04/19 25 025 Active rosuvastatin (Crestor) 5 MG tabletIndications: Mixed hyperlipidemia Take 1 tablet (5 mg) by mouth Daily 90 tablet 3 11/28/19 24 025 Discontin ued(Reord er) Active Problems Problem Noted Date Diagnosed Date H/O total hysterectomy 12/08/2022 Intraventricular conduction delay 12/08/2022 Left atrial enlargement 12/08/2022 Mixed hyperlipidemia 12/08/2022 Osteopenia 12/08/2022 Osteoporosis of lumbar spine 12/08/2022 Vitamin D deficiency 12/08/2022 Encounters Date Type Department Care Team Description 12/03/2024 Telephone [facility] [address] [place] [address] Lizy Curry MA Care Coordination from Last 3 Months Immunizations Immunization Administration Dates Next Due Influenza, High Dose Seasona l, Preservative Free 03/19/2024 Influenza, High-dose Seasona l, Quadrivalent, Preservative Free 03/21/2019 Influenza, Seasonal, Quadriv alent, Adjuvanted 03/31/2023 Influenza, injectable, quadr ivalent, preservative free 03/26/2020,03/13/2018,03/18/2017 Influenza, seasonal, injecta ble, preservative free 03/15/2016,03/12/2015 Pneumococcal Conjugate PCV 13 03/21/2019 Pneumococcal Polysaccharide PPSV23 03/26/2020 Zoster, Recombinant 03/09/2024 Zoster, live 03/17/2015,02/07/2014 Family History Medical History Relation Name Comments Coronary artery disease Brother 1 1 br other Hodgkin's lymphoma Brother 1 Prostate cancer Brother 1 bladder cancer Brother 1 defects Brother 2 Venu Cancer Brother 3 Marino Cancer Brother 4 Jesse Heart disease Brother 5 Ilya No Known Problems Daughter Heart disease Father Venu Hyperlipidemia Father Venu Parkinsonism Father Venu Hearing loss Mother Diana No Known Problems Sister No Known Problems Son Relation Name Status Comments Brother 1 5 brothers Brother 2 Venu Brother 3 Marino Brother 4 Jesse Brother 5 Ilya Daughter 2 daughters Father Venu Mother Diana Sister 6 sisters Son 2 sons Social History Tobacco Use Types Packs/Day Years Used Date Smoking Tobacco: Never Smokeless Tobacco: Never Tobacco Cessation:Counseling Given: Yes Alcohol Use Standard Drinks/Week Comments Not Currently [...] How often do you attend chur or catholic services? More than 4 times per year 04/25/2023 Do you belong to any clubs o r organizations such as mu-ism groups, unions, fraternal or athletic groups, or [...] Recorded Patient Health Questionnaire-2 Score 0 06/07/2024 [facility] - Occupational Stress Questionnaire Answer [...] money to buy more. Never true 04/25/20 Within the past 12 months, t he [...] place to sleep or slept in a jail (including now)? No 04/25/2023 Comments No Sex and Gender Information Value Date Recorded Sex Assigned at Not on file Legal Sex Female 6:37 PM EDT Gender Identity Not on file Sexual Orientation Not on file Last Filed Vital Signs Vital Sign Reading Time Taken Comments Blood Pressure 118/68 06/13/2024 9:36 AM EST Pulse 69 06/13/2024 9:36 AM EST Temperature - - Respiratory Rate 18 06/28/2024 10:07 AM EST Oxygen Saturation 96% 06/13/2024 9:36 AM EST Inhaled Oxygen Concentration - - Weight 56.7 kg (125 lb) 06/28/2024 10:07 AM EST Height 167.6 cm (5' 6 ) 06/28/2024 10:07 AM EST Body Mass Index 20.18 06/28/2024 10:07 AM EST Plan of Treatment Upcoming Encounters Date Type Department Care Team (Late st Contact Info) Description 12/12/2024 3:00 PM EDT Office Visit [facility] 100 [address] [facility] 100 [place] [address] Del Carolina MD [address] [place] [id number] Health Maintenance Due Date Last Done Comments CT Colonography 1955 FIT-DNA 1955 FIT 1955 FOBT 1955 Sigmoidoscopy 1955 Influenza Vaccine (#1) 2025 , 03/31/2023, 03/26/2020, Additional history exists Mammogram 06/04/2025 06/04/2024, 100 08/2022, 02/03/2022, Additional history exists Medicare Annual Wellness (AWV) 06/13/2025 0 06/13/2024, 05/02/2023, 03/29/2022 Colonoscopy 12/10/2031 12/09/2021, 07/0 11/2021, 11/04/2021, Additional history exists Colorectal Cancer Screening 12/10/2031 Pneumococcal Vaccine: 65+ Years Completed , 03/21/2019 Procedures Procedure Name Priority Date/Time Associated Diagnosis Comments MM TOMOSYNTHESIS SCREENING BI 06/04/2024 3:28 PM EST COLONOSCOPY Routine 12/09/2021 12:00 PM EDT from Last 3 Months or Most Recently Relevant to Health Maintenance Results * MM TOMOSYNTHESIS SCREENING BI (06/04/2024 3:28 PM EST) Anatomical Region Laterality Modality Other 06/04/2024 3:28 PM EST Narrative 06/04/2024 3:29 PM EST The [address] [address] Mammography Report Signed Patient: RENO MASON MR#: [id number] : 1955 Acct:[id number] Age/Sex: 68 / F ADM Date: 05/17/24 Loc: MAMMO Attending Dr: DEL CAROLINA Ordering Physician: DEL CAROLINA Results: Date of Service: 05/17/24 Follow Up: Procedure(s): MM tomosynthesis screening BI Accession Number(s): [id number] cc: DEL CAROLINA Patient Name: RENO MASON MR#: [id number] : 1955 Exam Date: 05/17/2024 Ordering Doctor: [...] prostate cancer at age 58. LOCATION: [facility] BREAST COMPOSITION: The breasts are extremely dense, [...] Signed By: 06/04/24 1529 DD/ 1528 TD/TT: Java Web Developer: Procedure Note Radiology, Radiologist, MD - 06/04/2024 [place] [address] Mammography Report Signed Patient: RENO MASON MMR#: [id number] : 4Acct:[id number] Age/Sex: 68 / FADM Date: 05/17/24 Loc: MAMMO Attending Dr: DEL CAROLINA Ordering Physician: DEL CAROLINAResults: Date of Service: 05/17/24Follow Up: Procedure(s): MM tomosynthesis screening BI Accession Number(s): [id number] cc: DEL CAROLINA Patient Name: RENO MASON MR#: [id number] : 1955 Exam Date: 05/17/2024 Ordering Doctor: [...] prostate cancer at age 58. LOCATION: [facility] BREAST COMPOSITION: The breasts are extremely dense, [...] M.D. Signed By:06/04/24 1529 DD/ 1528 TD/TT: Java Web Developer: us Del Carolina MD [facility] Final Resu lt * Colonoscopy (12/09/2021 12:00 PM EDT) Anatomical Region Laterality Modality Endoscopy 12/09/2021 12:0 0 PM EDT Narrative 12/09/2021 12:00 PM EDT PERFORMED AT [facility] LOCATION:[id number] Procedure Note CONVERSION, GENERIC - 10/20/2022 PERFORMED AT [facility] LOCATION:[id number] Del Carolina MD ENDOSCOPY PROCEDURE ORDERABL ES Final Result from Last 3 Months or Most Recently Relevant to Health Maintenance Insurance MEDICARE AET Advance Directives Documents on File Type Date Recorded Patient Rn Admit Expl anation Advance Directives and Living Will 04/17/2019 2003-04-02 Power Of Grade Foreman Care Teams Inspector Multifocal Lens Relationship Specialty Start Date End Date Del Carolina MD [address] [address] PCP - ACO Reach 10/28/22 Del Carolina MD [address] [address] PCP - General Family Medicine 10/12/22
--- OUTSIDE RECORDS SUMMARY | 2024-12-04 09:32 | XMS_ITS | CCD ---
Author Organization [facility] Care Team Providers Care Coo Name Role Phone DEL CAROLINA Primary Care Physician REQUEST, NONE LISTED Consulting Unavaila ble REQUEST, DR VIVAS LISTED Admitting Unavaila ble CAITY, DR KAUR Primary Care Unavailable REQUEST, DR [...] ZIEBER, DR MELENDEZ R Consulting Unavailable REQUEST, NONE LISTED Consulting Unavaila ble CAITY, DR KAUR Primary Care Unavailable REQUEST, DR VIVAS LISTED Admitting Unavaila ble REQUEST, DR VIVAS LISTED Attending Unavaila Del Britton MD Unavailable Del Carolina MD Primary Care Provider TELLO GUERIN Attending Unavailable DEL CAROLINA Attending Unavailable DEL CAROLINA Attending Unavailable DEL CAROLINA Attending Unavailable Medications Current Medications Medication Drug [...] Refills(s) 0 Start Date: 10/28/21 Status: Ordered calcium citrate 950 mg oral tablet (6 sources) take 1 tablet by mouth in the morning calcium citrate (Calcitrate) 950 (200 Ca) MG tablet Take 950 mg by mouth in the morning. Active cholecalciferol 0.05 mg oral capsule (6 sources) Vitamin D take 1 capsule by mouth in the morning cholecalciferol (Vitamin D-3) 50 MCG (2000 UT) capsule Take 2,000 Units by mouth in the morning. Active ciclopirox 80 mg/ml topical solution (2 sources) Start: 06-28-2024 ciclopirox (Penlac) 8 % solution Indications: Pain due to onychomycosis of toenails of both feet Apply topically at bedtime 6 mL 3 06/28/2024 Active Start: 06-28-2024 ciclopirox (Pe nlac) 8 % solution Indications: Pain due to onychomycosis of toenails of both feet Apply topically at bedtime 6 mL 3 06/28/2024 Active Multi Vitamins oral tablet (1 source) Start: 11-04-2021 take 1 tablet by mouth once daily Multi Vitamins oral tablet 1 tab(s), Oral, Daily, Refill(s) 0 Start Date: 11/04/21 Status: Ordered multivitamin (Theragran) tablet (6 sources) take 1 tablet by mouth in the morning multivitamin (Theragran) tablet Take 1 tablet by mouth in the morning. Active [place]-3 (1 source) Start: 10-28-2021 [place]-3 Refill (s) 0 Start Date: 10/28/21 Status: Ordered rosuvastatin calcium 5 mg oral tablet (7 sources) HMG-CoA Reductase Inhibitor Start: 11-28-2023 End: 11-27-2024 take 1 tablet by mouth once daily rosuvastatin (Crestor) 5 MG tablet Indications: Mixed hyperlipidemia (CMS/HCC) Take 1 tablet (5 mg) by mouth Daily 90 tablet 3 11/28/2023 11/27/2024 Active Start: 10-28-2021 take 1 tablet by ivon th once daily rosuvastatin 5 mg Tab 5 mg = 1 tab(s), Oral, Daily, Refills(s) 0 Start Date: 10/28/21 Status: Ordered Problems Active Problems Problem Classification Problem Date Documented Date Episodic/Chronic Conduction disorders (7 sources) Intraventricular conduction defect; Translations: [Conduction disorder, unspecified] Onset: 12-08-2022 10-28-2021 Chronic Disorders of lipid metabolism (9 sources) Mixed hyperlipidemia; Translations: [Mixed hyperlipidemia] Onset: 12-08-2022 10-28-2021 Chronic Menopausal disorders (1 source) Menopausal and female climacteric states; Translations: [MENOPAUSAL FE CLIMACTERIC STATES] Onset: 05-08-2022 Chronic Mycoses (2 sources) Pain in toe; Translations: [Tinea unguium] 06-28-2024 Episodic Nutritional deficiencies (11 sources) Vitamin D deficiency; Translations: [Vitamin D deficiency, unspecified] Onset: 05-03-2022 10-28-2021 Chronic Nutritional deficiencies (1 source) Iron deficiency 10-28-2021 Episodic Osteoporosis (11 sources) Osteoporosis; Translations: [Other osteoporosis without current pathological fracture] Onset: 05-08-2022 10-28-2021 Chronic Other and ill-defined heart disease (7 sources) Left atrial enlargement; Translations: [Cardiomegaly] Onset: 12-08-2022 10-28-2021 Chronic Other bone disease and musculoskeletal deformities (1 source) Other specified disorders of bone density and structure, left thigh; Translations: [OTH D/O BONE DEN STRUCT LT THIGH] Onset: 05-08-2022 Episodic Other bone disease and musculoskeletal deformities (1 source) Other specified disorders of bone density and structure, right thigh; Translations: [OTH D/O BONE DEN STRUCT RT THIGH] Onset: 05-08-2022 Episodic Other screening for suspected conditions (not mental disorders or infectious disease) (7 sources) Screening for malignant neoplasm of colon done; Translations: [Encounter for screening for malignant neoplasm of colon] Onset: 11-04-2021 Episodic Residual codes; unclassified (1 source) Asymptomatic menopausal state; Translations: [ASYMPTOMATIC MENOPAUSAL STATE] Onset: 05-08-2022 Episodic Residual codes; unclassified (2 sources) Active advance directive (copy within chart) ; Translations: [Other specified health status] 06-13-2024 Episodic Screening and history of mental health and substance abuse codes (2 sources) Patient encounter status; Translations: [Encounter for screening examination for other mental health and behavioral disorders] 06-13-2024 Episodic Unclassified (1 source) Body mass index 20-24 - normal 11-04-2021 Unclassified (1 source) Patient encounter status 11-04-2021 Past or Other Problems Problem Classification Problem Date Documented Da te Episodic/Chronic Deficiency and other anemia (1 source) Iron deficiency anemia, unspecified; Translations: [IRON DEFICIENCY ANEMIA UNSPECIFIED] Onset: 12-11-2021 Episodic Mood disorders (6 sources) Mood disorders Onset: 05-02-2023 05-02-2023 Other aftercare (1 source) M[facility] (current) use of aspirin; Translations: [EXTRUDER TENDER CURRENT USE OF ASPIRIN] Onset: 12-11-2021 Episodic Other bone disease and musculoskeletal deformities (1 source) Other specified disorders of bone density and structure, unspecified site; Translations: [OTH D/O BONE DEN STRUCT UNS SITE] Onset: 12-11-2021 Episodic Other bone disease and musculoskeletal deformities (6 sources) Osteopenia; Translations: [Other specified disorders of bone density and structure, unspecified site] Onset: 12-08-2022 12-08-2022 Episodic Results Test Name Value Interpretation Reference [...] by: NORA CONN Date: 2022-05-03 09:36 Normal [facility] SCREENING MAMMOGRAM W/AYANNA, BILATERAL*on 02-03-2022 SCREENING MAMMOGRAM [...] VERY IMPORTANT TO YOUR HEALTH. THE CURRENT [place] [employer]LE[employer] OF [employer] AND N[employer] COMPREHENSIVE [employer] NETWORK GUIDELINES RECOMMENDS ANNUAL MAMMOGRAPHY BEGINNING AT AGE 38 THIS FACILITY USES A REMINDER SYSTEM TO ENSURE ALL PATIENTS RECEIVE REMINDER NOTIFICATIONS AT THE APPROPRIATE TIME BASED ON THE RECOMMENDATIONS OF THIS EXAM. Report reported and signed by Raheel Peters on 02/03/2022 1010 Normal [facility] [employer] Workers Supervisor Outside Colonoscopyon 2021 Outside Colonoscopy [id number] #1.00CD:127 Normal [facility] Reminderson 12-10-2021 Reminders - From: Giana Garber LPN To: GSN - Clinical; Sent: 12/10/2021 10:33:39 EDT Show up: 11/10/2031 07:00:00 EDT Subject: colonoscopy recall Due Date/Time: 12/10/2031 07:00:00 EDT Reminder/Recall Patient is due for screening colonoscopy 12/10/2031. Normal [facility] Consultation Noteon 12-02-19 Consultation Note [id number] #1.00CD:127 Normal [facility] Consent for Procedure/Surger yon 11-05-2021 Consent for Procedure/Surgery [id number] #1.00CD:127 Normal [facility] Ambulatory Visit Summaryon 0 11-04-2021 Ambulatory Visit Summary RENO MASON :1955 Visit Date:11/04/2021 Ambulatory Visit Instructions Your [...] Vitamins oral tablet) omega-3 polyunsaturated fatty acids ([place]-3) rosuvastatin (rosuvastatin 5 mg Tab) Procedures Performed [...] or concerns Unchanged omega-3 polyunsaturated fatty acids ([place]-3) Contact prescribing physician if questions or concerns [...] neoplasm of colon Vitamin D deficiency Normal [facility] Patient Correspondenceon Patient Correspondence [id number]#1.00CD:127 Normal [facility] Physician Referralon 022 Physician Referral [id number] #1.00CD:127 Normal [facility] RAY - LIPID PROFILEon 2021 CHOL-HDL RATIO NORM SEE BELOW Normal [facility] Comment on above: Result Comment: 3.3 - 4.4 LOW RISK 4.4 - 7.1 AVERAGE RISK 7.1 - 11.0 MODERATE RISK >11.0 HIGH RISK Performed By: #### D ATLI #### [facility] [address] [place] [address] Dr. Fred Norton Cholesterol [Mass/Vol] 181 mg/dL Normal <=200 [facility] Comment on above: Performed By: #### D ATLIPI #### [facility] [address] [address] [address] Fred Norton Cholesterol in HDL [Mass/Vol] 70 mg/dL Critically high 40-60 [facility] Comment on above: Performed By: #### D ATLIPI #### [facility] [address] [address] [address] Fred Norton Cholesterol in LDL [Mass/Vol] 90.6 mg/dL Normal [facility] Comment on above: Performed By: #### D ATLIPI #### [facility] [address] [address] [address] Fred Norton Cholesterol.total/Cho lesterol in HDL [Mass ratio] 2.6 {ratio} Normal [facility] Comment on above: Performed By: #### D ATLIPI #### [facility] [address] [address] [address] Fred Norton HDL NORMAL > or = 60 mg/dl - LOW CARDIOVASCULAR RISK <40 mg/dl - HIGH CARDIOVASCULAR RISK Normal [facility] Comment on above: Performed By: #### D ATLIPI #### [facility] [address] [place] [address] Dr. Fred Norton LDL CALC NORMAL SEE BELOW Normal [facility] Comment on above: Result Comment: <100 mg/dl OPTIMAL 100 - 129 mg/dl NEAR OR ABOVE OPTIMAL 130 - 159 mg/dl BORDERLINE HIGH 160 - 189 mg/dl HIGH >190 mg/dl VERY HIGH Performed By: #### D ATLIPI #### [facility] [address] [address] [address] Fred Norton Triglyceride [Mass/Vol] 102 mg/dL Normal <=150 [facility] Comment on above: Performed By: #### D ATLIPI #### [facility] [address] [address] [address] Fred Norton VLDL CALC 20.4 mg/dL Normal [facility] Comment on above: Performed By: #### D ATLIPI #### [facility] [address] [address] [address] Fred Norton GLYCOHEMOGLOBIN A1Con 2021 ADA RECOMMENDATION ADA THERAPEUTIC TARGET 6.0 - 7.0 ACTION SUGGESTED > 7.0 Normal [facility] Comment on above: Performed By: #### D ATA1C #### [facility] [address] [address] [address] Fred Norton Glucose [Mass/Vol] 123 mg/dL Normal [facility] Comment on above: Performed By: #### D ATA1C #### [facility] [address] [address] [address] Fred Norton HbA1c (Bld) [Mass fraction] 5.9 % Normal <=6.0 [facility] Comment on above: Performed By: #### D ATA1C #### [facility] [address] [place] [address] Dr. Fred Norton CBC AUTO DIFFon 06-16-2021 BASO # 0.0 103/ul Normal 0.0-0.1 [facility] Comment on above: Performed By: #### D ATCBC #### [facility] [address] [place] [address] Dr. Fred Norton Basophils/100 WBC (Bld) 0.5 % Normal 0.2-2.0 [facility] Comment on above: Performed By: #### D ATCBC #### [facility] [address] [place] [address] Dr. Fred Norton EO # 0.1 103/ul Normal 0.0-0.7 [facility] Comment on above: Performed By: #### D ATCBC #### [facility] [address] [place] [address] Dr. Fred oNrton Eosinophils/100 WBC (Bld) 2.4 % Normal 0.9-7.0 [facility] Comment on above: Performed By: #### D ATCBC #### [facility] [address] [place] [address] Dr. Fred Norton Erythrocyte distribution width (RBC) [Ratio] 12.1 % Normal 11.0-15.0 [facility] Comment on above: Performed By: #### D ATCBC #### [facility] [address] [place] [address] Dr. Fred Norton Hematocrit (Bld) [Volume fraction] 39.6 % Normal 36.0-48.0 [facility] Comment on above: Performed By: #### D ATCBC #### [facility] [address] [place] [address] Dr. Fred Norton Hemoglobin (Bld) [Mass/Vol] 13.1 g/dL Normal 12.0-16.0 [facility] Comment on above: Performed By: #### D ATCBC #### [facility] [address] [place] [address] Dr. Fred Norton IG # 0.01 10e3/ul Normal 0.00-0.03 [facility] Comment on above: Performed By: #### D ATCBC #### [facility] [address] [place] [address] Dr. Fred Norton IG % 0.2 % Normal 0.0-0.5 [facility] Comment on above: Performed By: #### D ATCBC #### [facility] [address] [place] [address] Dr. Fred Norton LYMPH # 1.9 103/ul Normal 1.2-3.8 [facility] Comment on above: Performed By: #### D ATCBC #### [facility] [address] [place] [address] Dr. Fred Norton Lymphocytes/100 WBC (Bld) 46.1 % Normal 20.5-60.0 [facility] Comment on above: Performed By: #### D ATCBC #### [facility] [address] [place] [address] Dr. Fred Norton MCH (RBC) [Entitic mass] 30.3 pg Normal 26.7-34.0 [facility] Comment on above: Performed By: #### D ATCBC #### [facility] [address] [place] [address] Dr. Fred Norton MCHC (RBC) [Mass/Vol] 33.1 g/dL Normal 29.9-35.2 [facility] Comment on above: Performed By: #### D ATCBC #### [facility] [address] [place] [address] Dr. Fred Norton MCV (RBC) [Entitic vol] 91.5 fL Normal 81.0-99.0 [facility] Comment on above: Performed By: #### D ATCBC #### [facility] [address] [place] [address] Dr. Fred Norton MONO # 0.4 103/ul Normal 0.3-0.8 [facility] Comment on above: Performed By: #### D ATCBC #### [facility] [address] [place] [address] Dr. Fred Norton Monocytes/100 WBC (Bld) 8.5 % Normal 1.7-12.0 [facility] Comment on above: Performed By: #### D ATCBC #### [facility] [address] [place] [address] Dr. Fred Norton NEUT # 1.8 103/ul Normal 1.4-6.5 [facility] Comment on above: Performed By: #### D ATCBC #### [facility] [address] [place] [address] Dr. Fred Norton Neutrophils/100 WBC (Bld) 42.3 % Critically low 43.0-75.0 [facility] Comment on above: Performed By: #### D ATCBC #### [facility] [address] [place] [address] Dr. Fred Norton Platelet mean volume (Bld) [Entitic vol] 9.4 fL Critically low 9.5-13.5 [facility] Comment on above: Performed By: #### D ATCBC #### [facility] [address] [place] [address] Dr. Fred Norton PLT 147 103/ul Critically low 150-450 [facility] Comment on above: Performed By: #### D ATCBC #### [facility] [address] [place] [address] Dr. Fred Norton RBC 4.33 106/ul Normal 4.20-5.40 [facility] Comment on above: Performed By: #### D ATCBC #### [facility] [address] [place] [address] Dr. Fred Norton WBC 4.1 103/ul Normal 4.0-11.0 [facility] Comment on above: Performed By: #### D ATCBC #### [facility] [address] [address] [address] Fred Norton RAY- BMP WITH LIPIDon 2021 Anion gap [Moles/Vol] 12.9 mmol/L Normal [facility] Comment on above: Performed By: #### D ATBMP #### [facility] [address] [place] [address] Dr. Fred Norton Calcium [Mass/Vol] 9.0 mg/dL Normal 8.4-10.2 [facility] Comment on above: Performed By: #### D ATBMP #### [facility] [address] [place] [address] Dr. Fred Norton Chloride [Moles/Vol] 103 mmol/L Normal 98-107 [facility] Comment on above: Performed By: #### D ATBMP #### [facility] [address] [place] [address] Dr. Fred Norton Cholesterol [Mass/Vol] 291 mg/dL Critically high <=200 [facility] Comment on above: Performed By: #### D ATBMP #### [facility] [address] [place] [address] Dr. Fred Norton Cholesterol in HDL [Mass/Vol] 54 mg/dL Normal [facility] Comment on above: Performed By: #### D ATBMP #### [facility] [address] [place] [address] Dr. Fred Norton Cholesterol in LDL [Mass/Vol] 196.4 mg/dL Normal [facility] Comment on above: Performed By: #### D ATBMP #### [facility] [address] [place] [address] Dr. Fred Norton CO2 [Moles/Vol] 30.3 mmol/L Critically high 22.0-30.0 [facility] Comment on above: Performed By: #### D ATBMP #### [facility] [address] [address] [address] Fred Norton Creatinine [Mass/Vol] 0.76 mg/dL Normal 0.52-1.04 [facility] Comment on above: Performed By: #### D ATBMP #### [facility] [address] [address] [address] Fred Norton EGFR-AF MAURITANIAN >60 Normal >=60 [facility] Comment on above: Performed By: #### D ATBMP #### [facility] [address] [address] [address] Fred Nortno EGFR-NON AF MAURITANIAN >60 Normal >=60 [facility] Comment on above: Performed By: #### D ATBMP #### [facility] [address] [place] [address] Dr. Fred Norton Glucose [Mass/Vol] 95 mg/dL Normal 74-106 [facility] Comment on above: Performed By: #### D ATBMP #### [facility] [address] [address] [address] Fred Norton HDL NORMAL > or = 60 mg/dl - LOW CARDIOVASCULAR RISK <40 mg/dl - HIGH CARDIOVASCULAR RISK Normal [facility] Comment on above: Performed By: #### D ATBMP #### [facility] [address] [address] [address] Fred Norton LDL CALC NORMAL SEE BELOW Normal [facility] Comment on above: Result Comment: <100 mg/dl OPTIMAL 100 - 129 mg/dl NEAR OR ABOVE OPTIMAL 130 - 159 mg/dl BORDERLINE HIGH 160 - 189 mg/dl HIGH >190 mg/dl VERY HIGH Performed By: #### D ATBMP #### [facility] [address] [place] [address] Dr. Fred Norton Potassium [Moles/Vol] 4.2 mmol/L Normal 3.4-5.0 [facility] Comment on above: Performed By: #### D ATBMP #### [facility] [address] [id number] Fred Norton Sodium [Moles/Vol] 142 mmol/L Normal 137-145 [facility] Comment on above: Performed By: #### D ATBMP #### [facility] [id number] Fred Norton Triglyceride [Mass/Vol] 203 mg/dL Critically high <=150 [facility] Comment on above: Performed By: #### D ATBMP #### [facility] [address] [address] [address] Fred Norton Urea nitrogen [Mass/Vol] 15.0 mg/dL Normal 7.0-17.0 [facility] Comment on above: Performed By: #### D ATBMP #### [facility] [address] [address] [address] Fred Norton Urea nitrogen/Creatinine [Mass ratio] 19.7 mg/mg Normal [facility] Comment on above: Performed By: #### D ATBMP #### [facility] [address] [address] [address] Fred Norton VLDL CALC 40.6 mg/dL Normal [facility] Comment on above: Performed By: #### D ATBMP #### [facility] [phone] Fred Norton Vital Signs Date Time Vital Sign Value Performing Clinician Facility 06-28-2024 10:07-0500 Body height 167.6 cm Tello Guerin DPM Work Phone: [facility] 06-28-2024 10:07-0500 Body mass index (BMI) [Ratio] 20.18 kg/m2 Tello Guerin DPM Work Phone: [facility] 06-28-2024 10:07-0500 Body weight 56.7 kg Tello Guerin DPM Work Phone: [facility] 06-28-2024 10:07-0500 Respiratory rate 18 /min Tello Guerin DPM Work Phone: [facility] 06-13-2024 09:36-0500 Body height 168.9 cm Del Carolina MD Work Phone: [facility] 06-13-2024 09:36-0500 Body mass index (BMI) [Ratio] 20.19 kg/m2 Del Carolina MD Work Phone: [facility] 06-13-2024 09:36-0500 Body weight 57.61 kg Del Carolina MD Work Phone: [facility] 06-13-2024 09:36-0500 Diastolic blood pressure 68 mm[Hg] Del Carolina MD Work Phone: [facility] 06-13-2024 09:36-0500 Heart rate 69 /min Del Carolina MD Work Phone: [facility] 06-13-2024 09:36-0500 SaO2% (BldA) [Mass fraction] 96 % Del Carolina MD Work Phone: [facility] 06-13-2024 09:36-0500 Systolic blood pressure 118 mm[Hg] Del Carolina MD Work Phone: [facility] 11-04-2021 13:50-0400 Blood Pressure Location Yaneli HEAD[facility] [place] 11-04-2021 13:50-0400 Diastolic blood pressure 60 mm[Hg] Yaneli HEADLEY [facility] [place] 11-04-2021 13:50-0400 Heart rate 68 /min Yaneli HEADLEY [facility] [place] 11-04-2021 13:50-0400 Respiratory rate 16 /min Yaneli HEADLEY [facility] [place] 11-04-2021 13:50-0400 Systolic blood pressure 110 mm[Hg] Yaneli HEADLEY [facility] [place] Encounters Encounter Date Encounter Type Care Provider Facility Start: 06-28-2024 End: 06-28-2024 Bamboo flowsheet Tello Guerin DPM Work Phone: [facility] Start: 06-28-2024 End: 06-28-2024 Bamboo flowsheet Tello Guerin DPM Work Phone: [facility] Start: 06-28-2024 End: 06-28-2024 Office outpatient new 30 minutes Tello Guerin DPM Work Phone: [facility] Comment on above: Pain due to onychomy cosis of toenails of both feet (Primary Dx) Start: 06-28-2024 End: 06-28-2024 ambulatory TELLO GUERIN Not Available Start: 06-13-2024 End: 06-13-2024 Bamboo flowsbalwinder Carolina MD Work Phone: [facility] Start: 06-13-2024 End: 06-13-2024 Bamboo flowsbalwinder Carolina MD Work Phone: [facility] Start: 06-13-2024 End: 06-13-2024 Patient encounter procedure Del Carolina MD Work Phone: [facility] Comment on above: Encounter for Medica re annual wellness exam (Primary Dx); Advance directive in chart; Encounter for screening for other disorder; Screening for alcohol problem; Osteoporosis of lumbar spine (CMS/HCC); Mixed hyperlipidemia (CMS/HCC) Start: 06-13-2024 End: 06-13-2024 ambulatory DEL CAROLINA Not Available Start: 11-28-2023 End: 11-28-2023 ambulatory DEL CAROLINA Not Available Start: 10-03-2023 End: 10-03-2023 ambulatory DEL CAROLINA Not Available Start: 05-03-2022 End: 05-04-[address] DEL CAROLINA Facility: Start: 12-09-2021 End: 12-09-[address] DEL CAROLINA Facility:[facility] Start: 11-04-2021 End: 11-04-2021 Patient encounter procedure Yaneli Palomares ANIS[facility] Start: 09-10-2021 End: 09-11-2021 ambulatory NONE LISTED REQUEST Facility: Start: 06-16-2021 End: 06-17-[address] NONE LISTED REQUEST Facility: Procedures Date Procedure Procedure Detail Performing Clinician Start: 06-04-2024 Mammography Del Carolina MD Work Phone: Start: 12-08-2022 History of total hysterectomy H/O total hysterectomy Del Carolina MD Work Phone: Start: 12-09-2021 Colonoscopy Del Carolina MD Work Phone: Start: 09-22-2011 Colonoscopy Yaneli HEADLEY Cystoscopy Yaneli HEADLEY Dilation and curetta ge of uterus Yaneli HEADLEY Total hysterectomy v ia vaginal approach Yaneli HEADLEY Plan of Treatment Date Care Activity Detail Author Start: 12-10-2031 Screening for malign ant neoplasm of colon [facility] Start: 06-13-2025 Medicare Annual Well ness (AWV) Medicare Annual Wellness (AWV) [facility] Start: 06-04-2025 Screening for malign ant neoplasm of breast [facility] Start: 06-28-2024 End: 06-28-2024 Patient encounter procedure [facility] Comment on above: Arrived Start: 06-13-2024 End: 06-13-2024 Patient encounter procedure 06/13/2024 9:30 AM EST Office Visit [facility] [address] [place] [address] Del Carolina MD [address] [place] [address] (Fax) Encounter for Medicare annual wellness exam; Advance directive in chart; Encounter for screening for other disorder; Screening for alcohol problem; Screening for osteoporosis; Menopause [facility] Comment on above: Encounter for Medica re annual wellness exam; Advance directive in chart; Encounter for screening for other disorder; Screening for alcohol problem; Screening for osteoporosis; Menopause Start: 05-02-2024 Medicare Annual Well ness (AWV) Medicare Annual Wellness (AWV) [facility] Start: 1955 Screening for malign ant neoplasm of colon [facility] Immunizations Immunization Date Immunization Notes Care Provider Fa cility 03-19-2024 influenza, high dose seasonal, preservative-free Del Carolina MD Work Phone: [facility] 03-09-2024 zoster vaccine recombinant E mamta Carolina MD Work Phone: [facility] 03-31-2023 Influenza, Seasonal, Quadrivalent, Adjuvanted Del Carolina MD Work Phone: [facility] 03-26-2020 influenza, injectabl e, quadrivalent, preservative free Del Carolina MD Work Phone: [facility] 03-26-2020 pneumococcal polysaccharide vaccine, 23 valent Del Carolina MD Work Phone: [facility] 03-21-2019 Influenza, High-dose Seasonal, Quadrivalent, Preservative Free Del Carolina MD Work Phone: [facility] 03-21-2019 pneumococcal conjuga te vaccine, 13 valent Del Carolina MD Work Phone: [facility] 03-13-2018 influenza, injectabl e, quadrivalent, preservative free Del Carolina MD Work Phone: [facility] 03-18-2017 influenza, injectabl e, quadrivalent, preservative free Del Carolina MD Work Phone: [facility] 03-15-2016 influenza, seasonal, injectable, preservative free Del Carolina MD Work Phone: [facility] 03-17-2015 zoster vaccine, live Del Carolina MD Work Phone: [facility] 03-12-2015 influenza, seasonal, injectable, preservative free Del Carolina MD Work Phone: [facility] 02-07-2014 zoster vaccine, live Del Carolina MD Work Phone: [facility] Healthcare Payers Date Payer Category Payer Private Health Insurance [employer] [id number] 2018 Medicare MEDICARE [id number] 5 1959 Medicare [id number] 1959 Private Health Insurance CLI [id number] 1959 Self-pay 1955 Unknown [id number] 1953 Unknown [id number] 1953 Unknown [id number] 1953 Unknown [id number] 1953 Unknown [id number] 1953 Unknown [id number] Unknown [id number] Unknown [id number] Social History Date Type Detail Facility Start: 11-04-2021 End: 05-01-2023 Never smoked tobacco (finding) [facility] Start: 04-25-2023 End: 06-07-2024 Female [facility] Start: 05-01-2023 Tobacco use and exposure Smoke less tobacco non-user [facility] Start: 11-28-2023 End: 06-28-2024 Alcoholic beverage intake Ex-drinker (finding) [facility] Start: 04-25-2023 End: 11-28-2023 Alcoholic beverage intake [facility] Within the last year , have you been afraid of your partner or ex-partner? No [facility] Do you belong to any clubs or organizations such as amish groups, unions, fraternal or athletic groups, or school groups? Yes [facility] Are you now , , , , never or living with a partner? [facility] How often to you hav e a drink containing alcohol? Monthly or less [facility] How often do you hav e 6 or more drinks on 1 occasion? Never [facility] Do you feel stress - tense, restless, nervous, or anxious, or unable to sleep at night because your mind is troubled all the time - these days [OSQ] Only a little [facility] (I/We) worried wheth er (my/our) food would run out before (I/we) got money to buy more. Never true [facility] Start: 1955 Sex assigned at Not on file [facility] History of Present illness Narrative 06-28-2024 Tello Guerin, DPM - 06/28/2024 10:10 AM EST Note Date & Type Note Facility 06-28-2024 History of Presen t illness Narrative Patient: Reno Mason : 1955 PCP: Del Carolina MD SUBJECTIVE This is a 69 y.o. female that presents today with a CC of elongated, thick nails. Pt states nails have been elongated and thick for many years and cause pain with ambulation in shoegear. Pt has tried previous treatment with compounding pharmacy prescription Pt presents today for nail care and treatment. Allergies: No Known Allergies Past Medical History: Past Medical History: Diagnosis Date Hot flashes due to menopause Iron deficiency anemia Osteopenia 2013 Underweight Medications: Current Outpatient Medications: calcium citrate (Calcitrate) 950 (200 Ca) MG tablet, Take 950 mg by mouth in the morning., Disp: , Rfl: cholecalciferol (Vitamin D-3) 50 MCG (2000 UT) capsule, Take 2,000 Units by mouth in the morning., Disp: , Rfl: multivitamin (Theragran) tablet, Take 1 tablet by mouth in the morning., Disp: , Rfl: rosuvastatin (Crestor) 5 MG tablet, Take 1 tablet (5 mg) by mouth Daily, Disp: 90 tablet, Rfl: 3 Social History: Social History Socioeconomic History Marital status: Spouse name: Not on file Number of children: Not on file Years of education: Not on file Highest education level: Not on file Occupational History Not on file Tobacco Use Smoking status: Never Smokeless tobacco: Never Substance and Sexual Activity Alcohol use: Not Currently Alcohol/week: 1.0 standard drink of alcohol Types: 1 Glasses of wine per week Drug use: Never Sexual activity: Not Currently Partners: Male control/protection: Post-menopausal Other Topics Concern Not on file Social History Narrative Not on file Social Drivers of Health Financial Resource Strain: Low Risk (04/25/2023) Overall Financial Resource Strain (CARDIA) Difficulty of Paying Living Expenses: Not hard at all Food Insecurity: No Food Insecurity (04/25/2023) Hunger Vital Sign Worried About Running Out of Food in the Last Year: Never true Ran Out of Food in the Last Year: Never true Transportation Needs: No Transportation Needs (04/25/2023) PRAPARE - Transportation Lack of Transportation (Medical): No Lack of Transportation (Non-Medical): No Physical Activity: Patient Declined (04/25/2023) Exercise Vital Sign Days of Exercise per Week: Patient declined Minutes of Exercise per Session: Patient declined Stress: No Stress Concern Present (04/25/2023) [employer] - Occupational Stress Questionnaire Feeling of Stress : Only a little Social Connections: Socially Integrated (04/25/2023) Social Connection and Isolation Panel [NHANES] Frequency of Communication with Friends and Family: More than three times a week Frequency of Social Gatherings with Friends and Family: Twice a week Attends Mormonism Services: More than 4 times per year Active Member of Clubs or Organizations: Yes Attends Club or Organization Meetings: More than 4 times per year Marital Status: Intimate Partner Violence: Not At Risk (04/25/2023) Humiliation, Afraid, Rape, and Kick questionnaire Fear of Current or Ex-Partner: No Emotionally Abused: No Physically Abused: No Sexually Abused: No Housing Stability: Low Risk (04/25/2023) Housing Stability Vital Sign Unable to Pay for Housing in the Last Year: No Number of Places Lived in the Last Year: 1 Unstable Housing in the Last Year: No ROS: General: denies fever, chills, fatigue, malaise Gastrointestinal: denies abdominal pain, ulcers, or changes in appetite or bowel habits Musculoskeletal: denies arthritis, denies loss of strength, pain to hip, knees, back Cardiovascular: denies CP, palpitations, irregular rhythms OBJECTIVE LE EXAM: DERM: Elongated thick yellow crumbly nails digits 1 through 10. Positive hair growth b/l feet. VASC: Positive palpable pedal pulses bilaterally NEURO: Gross sensation intact to bilateral feet ORTHO: Positive pain on palpation to nails 1 through 10 ASSESSMENT 1. Pain due to onychomycosis of toenails of both feet PLAN Discussed proper foot care with patient today. Debride nails in length and thickness digits 1 through 10 Discussed possible treatment options for fungal nails including topical as well as oral medication discussed Lamisil in detail with patient today and also possible nail avulsion in the future if continues to be problematic Patient prescription for Penlac today and apply nightly with instructions on how to use. Patient would like to follow up yearly for foot evaluation and did offer nail care services today Tello Guerin DPM documented in this encounter [facility] History of Present illness Narrative 06-13-2024 Del Carolina MD - 06/13/2024 9:30 AM EST Note Date & Type Note Facility 06-13-2024 History of Presen t illness Narrative Images from the original note were not included. Subjective : Chief Complaint: Reno Mason is an 69 y.o. female here for an annual wellness visit. I have reviewed and reconciled the history and medication list with the patient today. Current Outpatient Medications Medication Sig Dispense Refill calcium citrate (Calcitrate) 950 (200 Ca) MG tablet Take 950 mg by mouth in the morning. cholecalciferol (Vitamin D-3) 50 MCG (2000 UT) capsule Take 2,000 Units by mouth in the morning. multivitamin (Theragran) tablet Take 1 tablet by mouth in the morning. rosuvastatin (Crestor) 5 MG tablet Take 1 tablet (5 mg) by mouth Daily 90 tablet 3 No current facility-administered medications for this visit. Review of Systems Unremarkable except as noted List of current healthcare providers: Patient Care Team: Del Carolina MD as PCP - General (Family Medicine) Del Carolina MD as PCP - ACO [facility] Medicare Annual Visit Over the past 2 weeks, how often have you been bothered by any of the following problems? Little interest or pleasure in doing things: Not at all Feeling down, depressed, or hopeless: Not at all Patient Health Questionnaire-2 Score: 0 Rich Fall Risk History of Falling, Immediate or Within 3 Months: No Secondary Diagnosis: No Ambulatory Aid: Walks without aid/bedrest/nurse assist Intravenous Therapy/Heparin Lock: No Gait/Transferring: Normal/bedrest/immobile Mental Status: Oriented to own ability Rich Fall Risk Score: 0 Health Risk Assessment Form Do you need help eating, bathing, using the toilet, dressing, or getting around your home?: No Can you prepare your own meals?: Yes Can you do your own housework without help?: Yes Can you shop for groceries or clothes without help?: Yes Do you exercise for about 20 minutes 3 or more days a week?: No How confident are you that you can control and manage most of your health problems?: Very confident Can you mange your money, credit cards and accounts, pay bills and taxes?: Yes Vision Screening: Yes, patient sees regular ruling machine feeder/enamel dipper Hearing Screening: Not done Cognitive Screening Self Assessment: No concerns rasied by family members, friends, or caretakers Three Word Registration: Banana, [place], Chair Clock Drawing: Normal Clock - 2 Three Word Recall: All 3 words correct - 3 Total Score (0-5 Points): 5 Pain Assessment Pain Score: 0 - No pain Advance Care Planning Do you have a living will?: Yes Do you have a medical power of human resources office assistant?: Yes Who is your medical power of human resources office assistant?: Annamarie Mason, followed by Maricel Mason Objective : BP 118/68 Pulse 69 Ht 5' 6.5 Wt 127 lb SpO2 96% BMI 20.19 kg/m No results found. Physical Exam The patient is pleasant and in no acute distress The patient does not appear to have a gross neurologic deficit. The patient has good eye contact and clear speech Assessment/Plan : The following health maintenance schedule was reviewed with the patient and provided in printed form in the after visit summary: Health Maintenance Topic Date Due Medicare Annual Wellness (AWV) 05/02/2024 Mammogram 06/04/2025 Colorectal Cancer Screening 12/10/2031 Influenza Vaccine Completed Pneumococcal Vaccine: 65+ Years Completed 1. Encounter for Medicare annual wellness exam (Primary) The patient is here for their Annual Medicare Wellness visit. Demographics were updated. Self-assessment was completed and reviewed. Past medical, family, and social history were updated. The medication list updated and reviewed by the doctor. A list of other current medical providers is established and updated. Time was spent discussing health maintenance issues, ordering testing as appropriate, and a schedule was reviewed regarding recommended screening. We discussed safety issues and fall risk. Depression screening was completed and addressed as appropriate. Fall screening was completed and addressed. Cognitive function was assessed by direct observation, cognitive screening as indicated, and assessment of ability to perform ADL's. The BMI and discussed. Major risk factors for chronic disease including family history were discussed. An after visit summary is made available to the patient 2. Advance directive in chart No changes to advanced directives 3. Encounter for screening for other disorder Clinically insignificant depression screening 4. Screening for alcohol problem Negative alcohol screening 5. Osteoporosis of lumbar spine (CMS/HCC) We did discuss and she is doing basic supplementation. She is technically due for DEXA scan because of the osteoporosis but she is out of sync with her mammogram. We discussed and she would simply like to wait until her next mammogram and then get another DEXA scan. I did review with her the importance of weight-bearing exercise. 6. Mixed hyperlipidemia (CMS/HCC) She has not want medications. She did get burned out with all the running she is doing and has not been actively exercising. We discussed the importance of this and she thinks she is going to look into swimming. Electronically signed by Del Carolina MD on June 13, 2024 documented in this encounter [facility] Clinical Note 12-09-2021 Note Date & Type [...] 10 years. CC: Del Carolina M.D. : [facility] Signed and Approved by: DR YANELI HEADLEY . 12/14/2021 17:17:00 [facility] Clinical Note 11-04-2021 Note Date & Type [...] Vitamins oral tablet, 1 tab(s), Oral, Daily [place]-3 rosuvastatin 5 mg Tab, 5 mg= 1 [...] NF - Neurofibromatosis: Brother. Parkinson disease: Father. [facility] Comment on above: Result Comment: Elec tronically Signed By: ANISHA HASSAN, Yaneli Leiva\Date and Time Signed: 11/04/21 14:18 EDT Evaluation + Plan note Note Date & Type Note Facility Evaluation + Plan note No data available for this section [facility] Evaluation note Note Date & Type Note Facility Evaluation note Diagnosis Encounter for Medicare annual wellness exam- Primary Advance directive in chart Encounter for screening for other disorder Screening for alcohol problem Screening for alcoholism Osteoporosis of lumbar spine (CMS/HCC) Mixed hyperlipidemia (CMS/HCC) Mixed hyperlipidemia documented in this encounter [facility] Evaluation note Note Date & Type Note Facility Evaluation note Diagnosis Pain due to onychomycosis of toenails of both feet- Primary documented in this encounter [facility] Hospital Discharge instructions Note Date & Type Note Facility Hospital Discharge instructions No data available for this section [facility] Summary Purpose Family History No Family History Records FoundNo Family History Records FoundNo Family History Records FoundNo Family History Records Found Advance Directives No Advanced Directives Records FoundDocuments on File Type Date Recorded Patient Wellness Instructor Expl anation Advance Directives and Living Will 04/17/2019 2003-04-02 Power Of Sales Recruiting Coordinator Additional Source Comments INFORMATION SOURCE (unrecogn ized section and content) DATE CREATED AUTHOR 12/16/2021 [facility] DATE CREATED AUTHOR AUTHOR'S ORGANIZ ATION 02/03/2022 [facility] Me dical Specialist DATE CREATED AUTHOR AUTHOR'S ORGANIZ ATION 05/08/2022 [facility] pital DATE CREATED AUTHOR AUTHOR'S ORGANIZ ATION 06/30/2024 [facility] dical Specialists EPIC Care Teams (unrecognized sec tion and content) Coo Relationship Specialty Start Date End Date Del Carolina MD [address] [facility] [address] [place] [id number] PCP - [facility] 10/28/22 Del Carolina MD [address] [place] [address] (Fax) PCP - General Family Medicine 10/12/22 Coo Relationship Specialty Start Date End Date Del Carolina MD [address] [facility] [place] [address] (Fax) PCP - [facility] 10/28/22 Del Carolina MD [address] [place] [address] (Fax) PCP - General Family Medicine 10/12/22 Coo Relationship Specialty Start Date End Date Del Carolina MD [address] [place] [address] (Fax) PCP - [facility] Re[facility] 10/28/22 Del Carolina MD [address] [place] [address] (Fax) PCP - General Family Medicine 10/12/22 Coo Relationship Specialty Start Date End Date Del Carolina MD [address] [place] [address] (Fax) PCP - [facility] 10/28/22 Del Carolina MD [address] [place] [address] (Fax) PCP - General Family Medicine 10/12/22 Reason for Visit (unrecogniz ed section and content) Reason Comments Annual Exam Reason Comments Toenail Problem Rt 2nd nail fungus FOR RECORDS PERTAINING TO PATIENTS WHO ARE [...] BE BASED ON THE PRIMARY CLINICAL RECORDS. [facility]. provides no warranty or guarantee of the accuracy or completeness of information in this document.
[2024-12-04 10:41] LABS: Alanine Aminotransferase 28 U/L (14-59); Albumin Globulin Ratio 1.2; Albumin Level 3.8 g/dL (3.4-5.0); Alkaline Phosphatase 82 U/L (46-116); Anion Gap 11.8; Aspartate Amino Transferase 30 U/L (15-37); Blood Urea Nitrogen 16.0 mg/dL (7.0-18.0); Calcium 9.3 mg/dL (8.5-10.1); Carbon Dioxide 30.0 mmol/L (21.0-32.0); Chloride 105 mmol/L (98-107); Cholesterol 175 mg/dL (<=200); Estimated GFR (African America >60 (>=60 mL/min/1.73m^2); Estimated GFR (Non-African Ame >60 (>=60 mL/min/1.73m^2); Globulin 3.2 g/dL; Glucose 103 mg/dL (74-106); HDL Cholesterol 65 mg/dL (40-60); Potassium 3.8 mmol/L (3.5-5.1); Sodium 143 mmol/L (136-145); Total Protein 7.0 g/dL (6.4-8.2); Triglycerides 104 mg/dL (<=150); VLDL CHOLESTEROL 20.8 mg/dL
== END 2024-12-04 09:07 | disposition home or self-care (01) ==
LOC: LAB 09:09
PROVIDERS: PCP Family Medicine; Visit Provider Family Medicine
DX: Z13.1 Encounter for screening for diabetes mellitus (principal); E78.2 Mixed hyperlipidemia
CPT/HCPCS: 36415; 80053; 80061

== ENCOUNTER 2025-05-20 10:49 | Outpatient (OUT) | payer MEDICARE, SELFPAY ==
--- NOTE | 2025-05-20 10:51 | MM_ITS ---
Patient Name: RENO CORNELIUS MR#: [id number] : 1955 Exam Date: 05/20/2025 Ordering Doctor: DR VINCENT CAROLINA . RADIOLOGY REPORT PROCEDURE: MM TOMOSYNTHESIS SCREENING BI COMPARISON: MM TOMOSYNTHESIS SCREENING BI, 05/17/2024. MM TOMOSYNTHESIS SCREENING BI, 03/08/2023. MM TOMOSYNTHESIS SCREENING BI, 02/03/2022. MM TOMOSYNTHESIS SCREENING BI, 12/31/2020. INDICATIONS: Screening Calculator Name NCI Breast Cancer Risk Assessment Tool 5 Year Breast Cancer Risk 1.80% Lifetime Breast Cancer Risk 4.90% Personal Breast Cancer No Personal Ovarian Cancer No Treatments None Family Cancers Brother with prostate cancer at age 60; Brother with prostate cancer at age 65; Brother with prostate cancer at age 70; Brother with bladder cancer at age 74; Father with prostate cancer at age 60. LOCATION: [facility] BREAST COMPOSITION: The breasts are extremely dense, which lowers the sensitivity of mammography. FINDINGS: RIGHT BREAST: No significant suspicious finding. LEFT BREAST: No significant suspicious finding. DIAGNOSTIC CATEGORY 1--NEGATIVE. RECOMMENDATIONS: ROUTINE MAMMOGRAM AND CLINICAL EVALUATION IN 12 MONTHS. Dictated by: Luis Davis DO on 05/20/2025 at 12:38 Approved by: Luis Davis DO on 05/20/2025 at 12:41
== END 2025-05-20 10:50 | disposition home or self-care (01) ==
LOC: MAMMO 10:49
PROVIDERS: PCP Family Medicine; Visit Provider Family Medicine
DX: Z12.31 Encounter for screening mammogram for malignant neoplasm of breast (principal); Z80.42 Family history of malignant neoplasm of prostate; Z80.52 Family history of malignant neoplasm of bladder
CPT/HCPCS: 77063; 77067